=== PATIENT | male | born 1950 | race Caucasian/White ===

== ENCOUNTER 2020-08-11 08:45 | Inpatient (IN) | payer MEDICAID ==
[2020-08-11] VITALS (18 sets, daily range): BP systolic 95–134; BP diastolic 32–89
[~2020-08-11] VITALS: Ht 170.2 cm; Wt 100.7 kg
[2020-08-11] MEDS ORDERED: CEFTRIAXONE 1 G PREMIX 50 ML IV ONE (09:15)
[2020-08-11] MEDS ORDERED: AZITHROMYCIN 500 MG in DEXT 5% WATER 250 ML IV SCH ×2 (09:15→12:30)
[2020-08-11] MEDS ORDERED: METHYLPREDNISOLONE SOD SUCC 125 MG/2 ML VIAL IV ONE (09:15)
[2020-08-11 09:57] LABS: HEMATOCRIT. 46.9 % (42.0-52.0); HEMOGLOBIN. 16.2 g/dL (14.0-18.0); MEAN CORPUSCULAR HEMOGLOBIN 29.9 pg (28.0-32.0); MEAN CORPUSCULAR VOLUME 86.6 fL (80.0-94.0); MEAN PLATELET VOLUME 8.9 fl (7.4-10.4); PLATELET 224 x1000/uL (130-400); RED BLOOD CELL COUNT 5.41 mill/uL (4.7-6.1); RED CELL DISTRIBUTION WIDTH 14.4 % (11.6-14.6)
[2020-08-11 10:10] LABS: CHLORIDE 99 mEq/L (98-107)
[2020-08-11 10:28] LABS: NUCLEATED RED BLOOD CELLS 1 /100 WBC; PLATELET ESTIMATE NORMAL
[2020-08-11] MEDS ORDERED: FUROSEMIDE 40MG/4ML VIAL IVP ONE (10:30)
[2020-08-11] MEDS ORDERED: ASPIRIN 81MG TABLET PO ONE (10:30)
[2020-08-11 11:04] LABS: BG BASE EXCESS -0.5 mmol/L (-2.0-2.0); BG CARBOXYHEMOGLOBIN 0.8 % (0.5-1.5); BG DEOXYHEMOGLOBIN 3.1 % (0.0-5.0); BG FRACTION INSPIRED OXYGEN 100; BG HCO3 ACT 21.7 mmol/L (22.0-26.0); BG METHEMOGLOBIN 0.1 % (0.0-1.5); BG OXYGEN SATURATION 96.9 % (92.0-98.5); BG PCO2 29.9 mmHg (35.0-45.0); BG PH 7.479 (7.350-7.450); BG PO2 91.6 mmHg (75.0-100.0); BG SAMPLE SITE RIGHT RADIAL; BG VENT MODE MASK - BIPAP
[2020-08-11 11:37] LABS: D-DIMER 28.76 mg/L FEU (<0.50); INR 1.1; PROTHROMBIN TIME 11.6 sec (9.6-11.0)
[2020-08-11] MEDS ORDERED: LORAZEPAM 0.5MG TABLET PO PRN (12:30)
[2020-08-11] MEDS ORDERED: CLONIDINE 0.1MG TABLET PO PRN (12:30)
[2020-08-11] MEDS ORDERED: ONDANSETRON HCL 4MG/2ML INJ IV PRN (12:30)
[2020-08-11] MEDS ORDERED: IPRATROPIUM/ALBUTEROL 0.5-3(2.5)MG/3ML NEB HHN PRN (12:30)
[2020-08-11] MEDS ORDERED: DOCUSATE SODIUM 100MG CAPSULE PO PRN (12:30)
[2020-08-11] MEDS ORDERED: DEXTROSE 50% WATER 50ML SYRINGE IV PRN (12:45)
[2020-08-11] MEDS ORDERED: POTASSIUM CHLORIDE 20MEQ TABLET SR PO NR (13:45)
[2020-08-11] MEDS: ENOXAPARIN 100MG/ML SYR SUBCUT SCH (13:52)
[2020-08-11] MEDS: DEXAMETHASONE 2MG TABLET PO SCH (13:53)
[2020-08-11] MEDS ORDERED: CEFTRIAXONE 1 G PREMIX 50 ML IV SCH (14:00)
[2020-08-11] MEDS ORDERED: IOHEXOL-350 100 ML BOTTLE ONE (14:07)
[2020-08-11 14:18] LABS: CLARITY URINE CLEAR (CLEAR); COLOR URINE YELLOW (YELLOW); KETONES URINE NEGATIVE (NEGATIVE); LEUKOCYTE ESTERASE URINE NEGATIVE (NEGATIVE); NITRITE URINE NEGATIVE (NEGATIVE); OCCULT BLOOD URINE TRACE (NEGATIVE); PH URINE 5.5 (4.5-8.0); PROTEIN URINE 1+ (NEGATIVE); SPECIFIC GRAVITY URINE 1.025 (1.005-1.030)
[2020-08-11 14:37] LABS: *AMPHETAMINES SCREEN URINE NEGATIVE (NEGATIVE); *BARBITURATES SCREEN URINE NEGATIVE (NEGATIVE)
[2020-08-11 14:38] LABS: *BENZODIAZEPINES SCREEN URINE NEGATIVE (NEGATIVE); *COCAINE SCREEN URINE NEGATIVE (NEGATIVE); CANNABINOID URINE SCREEN NEGATIVE (NEGATIVE); METHADONE URINE SCREEN NEGATIVE (NEGATIVE); OPIATES URINE SCREEN NEGATIVE (NEGATIVE); PHENCYCLIDINE URINE SCREEN NEGATIVE (NEGATIVE)
[2020-08-11] MEDS: BLOOD SUGAR DIAGNOSTIC STRIP TEST SCH ×2 (16:01→21:27)
[2020-08-11] MEDS: INSULIN LISPRO 100 UNITS/ML SUBCUT SCH ×2 (16:57→21:35)
[2020-08-11 18:26] LABS: CREATINE KINASE MB FRACTION 14.4 ng/mL (0.5-3.6)
[2020-08-12] VITALS (29 sets, daily range): BP systolic 89–125; BP diastolic 50–73
[2020-08-12] MEDS: ENOXAPARIN 100MG/ML SYR SUBCUT SCH ×2 (00:20→12:30)
[2020-08-12 05:03] LABS: HEMATOCRIT. 41.3 % (42.0-52.0); HEMOGLOBIN. 14.1 g/dL (14.0-18.0); MEAN CORPUSCULAR HEMOGLOBIN 29.3 pg (28.0-32.0); MEAN CORPUSCULAR VOLUME 85.8 fL (80.0-94.0); MEAN PLATELET VOLUME 9.3 fl (7.4-10.4); PLATELET 181 x1000/uL (130-400); RED BLOOD CELL COUNT 4.81 mill/uL (4.7-6.1); RED CELL DISTRIBUTION WIDTH 14.6 % (11.6-14.6)
[2020-08-12] MEDS: BLOOD SUGAR DIAGNOSTIC STRIP TEST SCH ×4 (06:18→20:46)
[2020-08-12] MEDS: INSULIN LISPRO 100 UNITS/ML SUBCUT SCH ×4 (06:21→20:50)
[2020-08-12] MEDS ORDERED: DEXTROSE 50% WATER 50ML SYRINGE IV PRN (07:15)
[2020-08-12 08:19] LABS: PLATELET ESTIMATE NORMAL
[2020-08-12] MEDS: CEFTRIAXONE 1,000 MG in DEXTROSE 5% WATER 50 ML IV SCH (08:47)
[2020-08-12] MEDS: DEXAMETHASONE 2MG TABLET PO SCH (08:47)
[2020-08-12 09:04] LABS: BG BASE EXCESS 0.3 mmol/L (-2.0-2.0); BG CARBOXYHEMOGLOBIN 0.1 % (0.5-1.5); BG DEOXYHEMOGLOBIN 1.3 % (0.0-5.0); BG FRACTION INSPIRED OXYGEN 100; BG HCO3 ACT 23.3 mmol/L (22.0-26.0); BG METHEMOGLOBIN 0.3 % (0.0-1.5); BG OXYGEN SATURATION 98.7 % (92.0-98.5); BG OXYHEMOGLOBIN 98.3 % (94.0-97.0); BG PH 7.466 (7.350-7.450); BG SAMPLE SITE RIGHT RADIAL; BG TOTAL HEMOGLOBIN 15.3 g/dL (12.0-18.0); BG TOTAL RESPIRATORY RATE 35 b/min; BG VENT MODE MASK - BIPAP
[2020-08-12] MEDS: SODIUM CHLORIDE 0.9% 1,000 ML IV SCH (09:40)
[2020-08-12] MEDS ORDERED: KCL 20MEQ/100ML PREMIX 100 ML IV NR (11:00)
[2020-08-12] MEDS ORDERED: POTASSIUM CHLORIDE 20MEQ/PACKET PO SCH (14:00)
[2020-08-12] MEDS ORDERED: REMDESIVIR 200 MG in SODIUM CHLORIDE 0.9% 250 ML IV NR (14:00)
[2020-08-12] MEDS: ALBUTEROL 6.7GM HFA INHALER ORI SCH (20:37)
[2020-08-13] VITALS (52 sets, daily range): BP systolic 104–169; BP diastolic 58–138
[2020-08-13] MEDS: ALBUTEROL 6.7GM HFA INHALER ORI SCH ×2 (00:36→20:32)
[2020-08-13] MEDS: ENOXAPARIN 100MG/ML SYR SUBCUT SCH ×2 (00:50→15:11)
[2020-08-13] MEDS: HYDROCODONE/ACETAMINOPHEN 5/325MG TABLET PO PRN (00:51)
[2020-08-13] MEDS ORDERED: VANCOMYCIN 1500MG in DEXTROSE 5% WATER 250ML IV SCH (01:00)
[2020-08-13 05:38] LABS: HEMATOCRIT. 42.1 % (42.0-52.0); MEAN CORPUSCULAR HEMOGLOBIN 29.3 pg (28.0-32.0); MEAN CORPUSCULAR VOLUME 87.8 fL (80.0-94.0); MEAN PLATELET VOLUME 9.7 fl (7.4-10.4); PLATELET 187 x1000/uL (130-400); RED BLOOD CELL COUNT 4.79 mill/uL (4.7-6.1); RED CELL DISTRIBUTION WIDTH 14.5 % (11.6-14.6)
[2020-08-13 05:50] LABS: CHLORIDE 107 mEq/L (98-107)
[2020-08-13] MEDS: INSULIN LISPRO 100 UNITS/ML SUBCUT SCH ×4 (06:35→20:58)
[2020-08-13] MEDS: BLOOD SUGAR DIAGNOSTIC STRIP TEST SCH ×4 (06:35→20:15)
[2020-08-13 07:58] LABS: BG BASE EXCESS -0.8 mmol/L (-2.0-2.0); BG CARBOXYHEMOGLOBIN 0.6 % (0.5-1.5); BG HCO3 ACT 23.5 mmol/L (22.0-26.0); BG METHEMOGLOBIN 0.1 % (0.0-1.5); BG OXYHEMOGLOBIN 94.3 % (94.0-97.0); BG PCO2 37.7 mmHg (35.0-45.0); BG PH 7.412 (7.350-7.450); BG PO2 80.5 mmHg (75.0-100.0); BG SAMPLE SITE RIGHT RADIAL; BG TOTAL HEMOGLOBIN 15.7 g/dL (12.0-18.0); BG VENT MODE MASK - BIPAP
[2020-08-13 08:43] LABS: PLATELET ESTIMATE NORMAL
[2020-08-13] MEDS: CEFTRIAXONE 1,000 MG in DEXTROSE 5% WATER 50 ML IV SCH (09:19)
[2020-08-13] MEDS: DEXAMETHASONE 2MG TABLET PO SCH (09:19)
[2020-08-13] MEDS: AZITHROMYCIN 500 MG in DEXT 5% WATER 250 ML IV SCH (11:38)
[2020-08-13] MEDS: VANCOMYCIN 750 MG PREMIX 150 ML IV SCH (12:11)
[2020-08-13] MEDS: SODIUM CHLORIDE 0.9% 1,000 ML IV SCH ×2 (13:10→13:51)
[2020-08-13] MEDS: REMDESIVIR 100 MG in SODIUM CHLORIDE 0.9% 250 ML IV SCH (15:10)
[2020-08-13] MEDS: ASPIRIN 81MG EC TABLET PO SCH (15:12)
[2020-08-14] VITALS (22 sets, daily range): BP systolic 116–154; BP diastolic 59–89
[2020-08-14] MEDS: VANCOMYCIN 750 MG PREMIX 150 ML IV SCH (00:01)
[2020-08-14] MEDS: ENOXAPARIN 100MG/ML SYR SUBCUT SCH ×2 (00:02→12:31)
[2020-08-14] MEDS: HYDROCODONE/ACETAMINOPHEN 5/325MG TABLET PO PRN (00:04)
[2020-08-14] MEDS: ALBUTEROL 6.7GM HFA INHALER ORI SCH ×3 (01:30→21:15)
[2020-08-14] MEDS: SODIUM CHLORIDE 0.9% 1,000 ML IV SCH ×2 (04:48→18:01)
[2020-08-14 05:41] LABS: HEMATOCRIT. 44.1 % (42.0-52.0); HEMOGLOBIN. 14.8 g/dL (14.0-18.0); MEAN CORPUSCULAR HEMOGLOBIN 29.3 pg (28.0-32.0); MEAN CORPUSCULAR VOLUME 87.3 fL (80.0-94.0); MEAN PLATELET VOLUME 9.8 fl (7.4-10.4); PLATELET 146 x1000/uL (130-400); RED BLOOD CELL COUNT 5.05 mill/uL (4.7-6.1); RED CELL DISTRIBUTION WIDTH 14.3 % (11.6-14.6)
[2020-08-14 05:42] LABS: CHLORIDE 105 mEq/L (98-107)
[2020-08-14] MEDS: INSULIN LISPRO 100 UNITS/ML SUBCUT SCH ×4 (07:00→21:30)
[2020-08-14] MEDS: BLOOD SUGAR DIAGNOSTIC STRIP TEST SCH ×4 (07:11→21:26)
[2020-08-14] MEDS: DEXAMETHASONE 2MG TABLET PO SCH (09:18)
[2020-08-14] MEDS: CEFTRIAXONE 1,000 MG in DEXTROSE 5% WATER 50 ML IV SCH (09:18)
[2020-08-14] MEDS: ASPIRIN 81MG EC TABLET PO SCH (09:19)
[2020-08-14 10:01] LABS: PLATELET ESTIMATE NORMAL
[2020-08-14 10:28] LABS: BG BASE EXCESS -0.2 mmol/L (-2.0-2.0); BG CARBOXYHEMOGLOBIN 0.9 % (0.5-1.5); BG DEOXYHEMOGLOBIN 8.1 % (0.0-5.0); BG FRACTION INSPIRED OXYGEN 100; BG HCO3 ACT 22.5 mmol/L (22.0-26.0); BG METHEMOGLOBIN 0.3 % (0.0-1.5); BG OXYGEN SATURATION 91.8 % (92.0-98.5); BG OXYHEMOGLOBIN 90.7 % (94.0-97.0); BG PCO2 31.6 mmHg (35.0-45.0); BG PO2 58.2 mmHg (75.0-100.0); BG TOTAL HEMOGLOBIN 15.6 g/dL (12.0-18.0); BG VENT MODE MASK - BIPAP
[2020-08-14] MEDS: AZITHROMYCIN 500 MG in DEXT 5% WATER 250 ML IV SCH (11:42)
[2020-08-14] MEDS: REMDESIVIR 100 MG in SODIUM CHLORIDE 0.9% 250 ML IV SCH (15:06)
[2020-08-14] MEDS: PANTOPRAZOLE SODIUM 40 MG/VIAL IV SCH (15:06)
[2020-08-14] MEDS: AMLODIPINE 2.5MG TABLET PO SCH (21:29)
[2020-08-15] VITALS (24 sets, daily range): BP systolic 120–144; BP diastolic 71–87
[2020-08-15] MEDS: ENOXAPARIN 100MG/ML SYR SUBCUT SCH ×2 (01:33→12:26)
[2020-08-15 05:14] LABS: HEMATOCRIT. 43.2 % (42.0-52.0); HEMOGLOBIN. 14.4 g/dL (14.0-18.0); MEAN CORPUSCULAR HEMOGLOBIN 29.1 pg (28.0-32.0); MEAN CORPUSCULAR VOLUME 87.5 fL (80.0-94.0); MEAN PLATELET VOLUME 9.4 fl (7.4-10.4); PLATELET 161 x1000/uL (130-400); RED BLOOD CELL COUNT 4.94 mill/uL (4.7-6.1); RED CELL DISTRIBUTION WIDTH 14.7 % (11.6-14.6)
[2020-08-15 05:22] LABS: CHLORIDE 105 mEq/L (98-107)
[2020-08-15] MEDS: BLOOD SUGAR DIAGNOSTIC STRIP TEST SCH ×4 (05:30→20:25)
[2020-08-15] MEDS: INSULIN LISPRO 100 UNITS/ML SUBCUT SCH ×4 (06:13→20:35)
[2020-08-15] MEDS: SODIUM CHLORIDE 0.9% 1,000 ML IV SCH ×2 (06:19→23:44)
[2020-08-15] MEDS: ASPIRIN 81MG EC TABLET PO SCH (08:20)
[2020-08-15] MEDS: CEFTRIAXONE 1,000 MG in DEXTROSE 5% WATER 50 ML IV SCH (08:20)
[2020-08-15] MEDS: PANTOPRAZOLE SODIUM 40 MG/VIAL IV SCH (08:20)
[2020-08-15] MEDS: AMLODIPINE 2.5MG TABLET PO SCH ×2 (08:21→20:29)
[2020-08-15] MEDS: DEXAMETHASONE 4MG TABLET PO SCH (08:21)
[2020-08-15] MEDS: ALBUTEROL 6.7GM HFA INHALER ORI SCH ×4 (09:30→20:25)
[2020-08-15] MEDS: AZITHROMYCIN 500 MG in DEXT 5% WATER 250 ML IV SCH (09:39)
[2020-08-15] MEDS ORDERED: POTASSIUM CHLORIDE 20MEQ/PACKET PO NR (10:00)
[2020-08-15] MEDS: REMDESIVIR 100 MG in SODIUM CHLORIDE 0.9% 250 ML IV SCH (13:15)
[2020-08-15 17:19] LABS: PLATELET ESTIMATE NORMAL
[2020-08-16] VITALS (24 sets, daily range): BP systolic 129–159; BP diastolic 72–94
[2020-08-16] MEDS: ENOXAPARIN 100MG/ML SYR SUBCUT SCH ×2 (00:57→13:02)
[2020-08-16] MEDS: ALBUTEROL 6.7GM HFA INHALER ORI SCH ×3 (02:25→15:30)
[2020-08-16 04:30] LABS: HEMATOCRIT. 44.7 % (42.0-52.0); HEMOGLOBIN. 15.1 g/dL (14.0-18.0); MEAN CORPUSCULAR HEMOGLOBIN 29.4 pg (28.0-32.0); MEAN CORPUSCULAR VOLUME 87.1 fL (80.0-94.0); MEAN PLATELET VOLUME 9.3 fl (7.4-10.4); PLATELET 181 x1000/uL (130-400); RED BLOOD CELL COUNT 5.13 mill/uL (4.7-6.1); RED CELL DISTRIBUTION WIDTH 14.6 % (11.6-14.6)
[2020-08-16 04:40] LABS: CHLORIDE 105 mEq/L (98-107)
[2020-08-16] MEDS: BLOOD SUGAR DIAGNOSTIC STRIP TEST SCH ×4 (05:42→20:13)
[2020-08-16] MEDS: INSULIN LISPRO 100 UNITS/ML SUBCUT SCH ×4 (06:15→20:22)
[2020-08-16] MEDS: AMLODIPINE 2.5MG TABLET PO SCH (08:28)
[2020-08-16] MEDS: CEFTRIAXONE 1,000 MG in DEXTROSE 5% WATER 50 ML IV SCH (08:28)
[2020-08-16] MEDS: ASPIRIN 81MG EC TABLET PO SCH (08:28)
[2020-08-16] MEDS: DEXAMETHASONE 4MG TABLET PO SCH (08:28)
[2020-08-16] MEDS: PANTOPRAZOLE SODIUM 40 MG/VIAL IV SCH (08:28)
[2020-08-16] MEDS: AZITHROMYCIN 500 MG in DEXT 5% WATER 250 ML IV SCH (09:54)
[2020-08-16] MEDS: SODIUM CHLORIDE 0.9% 1,000 ML IV SCH (13:02)
[2020-08-16] MEDS: REMDESIVIR 100 MG in SODIUM CHLORIDE 0.9% 250 ML IV SCH (13:24)
[2020-08-16 13:43] LABS: PLATELET ESTIMATE NORMAL
[2020-08-16] MEDS ORDERED: DEXTROSE 50% WATER 50ML SYRINGE IV ONE ×2 (18:27→18:29)
[2020-08-16] MEDS: AMLODIPINE 5MG TABLET PO SCH (20:21)
[2020-08-17] VITALS (24 sets, daily range): BP systolic 124–153; BP diastolic 48–87
[2020-08-17] MEDS: ENOXAPARIN 100MG/ML SYR SUBCUT SCH ×2 (00:52→12:34)
[2020-08-17] MEDS: ALBUTEROL 6.7GM HFA INHALER ORI SCH ×5 (02:45→22:11)
[2020-08-17] MEDS: SODIUM CHLORIDE 0.9% 1,000 ML IV SCH ×2 (04:21→17:59)
[2020-08-17 05:30] LABS: HEMATOCRIT. 44.9 % (42.0-52.0); MEAN CORPUSCULAR VOLUME 86.9 fL (80.0-94.0); MEAN PLATELET VOLUME 9.4 fl (7.4-10.4); PLATELET 201 x1000/uL (130-400); RED BLOOD CELL COUNT 5.16 mill/uL (4.7-6.1); RED CELL DISTRIBUTION WIDTH 14.3 % (11.6-14.6)
[2020-08-17 05:42] LABS: CHLORIDE 105 mEq/L (98-107)
[2020-08-17] MEDS: BLOOD SUGAR DIAGNOSTIC STRIP TEST SCH ×4 (05:45→20:01)
[2020-08-17] MEDS: INSULIN LISPRO 100 UNITS/ML SUBCUT SCH ×4 (06:54→20:37)
[2020-08-17 07:45] LABS: BG DEOXYHEMOGLOBIN 2.8 % (0.0-5.0); BG HCO3 ACT 26.2 mmol/L (22.0-26.0); BG METHEMOGLOBIN 0.1 % (0.0-1.5); BG OXYGEN SATURATION 97.2 % (92.0-98.5); BG OXYHEMOGLOBIN 97.1 % (94.0-97.0); BG PCO2 39.8 mmHg (35.0-45.0); BG PH 7.437 (7.350-7.450); BG PO2 95.5 mmHg (75.0-100.0); BG SAMPLE SITE RIGHT RADIAL; BG TOTAL HEMOGLOBIN 15.6 g/dL (12.0-18.0); BG VENT MODE MASK - BIPAP
[2020-08-17] MEDS: AZITHROMYCIN 500 MG in DEXT 5% WATER 250 ML IV SCH (09:07)
[2020-08-17] MEDS: AMLODIPINE 5MG TABLET PO SCH ×2 (09:08→20:01)
[2020-08-17] MEDS: ASPIRIN 81MG EC TABLET PO SCH (09:08)
[2020-08-17] MEDS: PANTOPRAZOLE SODIUM 40 MG/VIAL IV SCH (09:08)
[2020-08-17 12:35] LABS: PLATELET ESTIMATE NORMAL
[2020-08-17] MEDS: ACETAMINOPHEN 325MG TABLET PO PRN (17:49)
[2020-08-18] VITALS (23 sets, daily range): BP systolic 114–146; BP diastolic 66–94
[2020-08-18] MEDS: ENOXAPARIN 100MG/ML SYR SUBCUT SCH ×2 (00:01→12:15)
[2020-08-18] MEDS: ALBUTEROL 6.7GM HFA INHALER ORI SCH ×5 (05:19→20:52)
[2020-08-18 05:24] LABS: HEMATOCRIT. 46.6 % (42.0-52.0); HEMOGLOBIN. 15.5 g/dL (14.0-18.0); MEAN CORPUSCULAR HEMOGLOBIN 29.2 pg (28.0-32.0); MEAN CORPUSCULAR VOLUME 87.8 fL (80.0-94.0); MEAN PLATELET VOLUME 9.2 fl (7.4-10.4); PLATELET 213 x1000/uL (130-400); RED BLOOD CELL COUNT 5.31 mill/uL (4.7-6.1); RED CELL DISTRIBUTION WIDTH 14.3 % (11.6-14.6)
[2020-08-18 05:25] LABS: CHLORIDE 102 mEq/L (98-107)
[2020-08-18] MEDS: BLOOD SUGAR DIAGNOSTIC STRIP TEST SCH ×4 (06:12→20:14)
[2020-08-18] MEDS: INSULIN LISPRO 100 UNITS/ML SUBCUT SCH ×4 (06:12→20:25)
[2020-08-18 07:08] LABS: PLATELET ESTIMATE NORMAL
[2020-08-18] MEDS: PANTOPRAZOLE SODIUM 40 MG/VIAL IV SCH (09:04)
[2020-08-18] MEDS: ASPIRIN 81MG EC TABLET PO SCH (09:05)
[2020-08-18] MEDS: AMLODIPINE 5MG TABLET PO SCH ×2 (09:05→20:14)
[2020-08-18] MEDS: SODIUM CHLORIDE 0.9% 1,000 ML IV SCH ×2 (09:09→21:28)
[2020-08-18 09:50] LABS: BG BASE EXCESS 1.5 mmol/L (-2.0-2.0); BG CARBOXYHEMOGLOBIN 1.8 % (0.5-1.5); BG DEOXYHEMOGLOBIN 3.6 % (0.0-5.0); BG FRACTION INSPIRED OXYGEN 100; BG HCO3 ACT 25.4 mmol/L (22.0-26.0); BG METHEMOGLOBIN 0.2 % (0.0-1.5); BG OXYGEN SATURATION 96.3 % (92.0-98.5); BG OXYHEMOGLOBIN 94.4 % (94.0-97.0); BG PCO2 37.7 mmHg (35.0-45.0); BG PH 7.446 (7.350-7.450); BG PO2 78.4 mmHg (75.0-100.0); BG SAMPLE SITE RIGHT RADIAL; BG TOTAL HEMOGLOBIN 15.1 g/dL (12.0-18.0); BG TOTAL RESPIRATORY RATE 34 b/min; BG VENT MODE MASK - BIPAP
[2020-08-18] MEDS ORDERED: LIDOCAINE HCL 1% 20ML VIAL (Pyxis) INJ ONE (10:19)
[2020-08-18] MEDS: MORPHINE SULFATE 2 MG/ML CPJ (NOT FOR IM USE) IV PRN (18:32)
[2020-08-18] MEDS: ACETAMINOPHEN 325MG TABLET PO PRN (23:59)
[2020-08-19] VITALS (23 sets, daily range): BP systolic 104–156; BP diastolic 34–85
[2020-08-19] MEDS: ENOXAPARIN 100MG/ML SYR SUBCUT SCH ×2 (00:04→13:11)
[2020-08-19] MEDS: MORPHINE SULFATE 2 MG/ML CPJ (NOT FOR IM USE) IV PRN ×2 (01:03→09:18)
[2020-08-19] MEDS: ALBUTEROL 6.7GM HFA INHALER ORI SCH ×4 (02:49→20:20)
[2020-08-19 05:31] LABS: CHLORIDE 104 mEq/L (98-107)
[2020-08-19 05:40] LABS: HEMATOCRIT. 43.3 % (42.0-52.0); HEMOGLOBIN. 14.6 g/dL (14.0-18.0); MEAN CORPUSCULAR HEMOGLOBIN 29.3 pg (28.0-32.0); MEAN CORPUSCULAR VOLUME 87.1 fL (80.0-94.0); MEAN PLATELET VOLUME 9.2 fl (7.4-10.4); PLATELET 215 x1000/uL (130-400); RED BLOOD CELL COUNT 4.98 mill/uL (4.7-6.1); RED CELL DISTRIBUTION WIDTH 14.4 % (11.6-14.6)
[2020-08-19] MEDS: BLOOD SUGAR DIAGNOSTIC STRIP TEST SCH ×4 (05:54→21:00)
[2020-08-19] MEDS: INSULIN LISPRO 100 UNITS/ML SUBCUT SCH ×4 (07:00→21:00)
[2020-08-19 07:31] LABS: PLATELET ESTIMATE NORMAL
[2020-08-19 08:46] LABS: BG BASE EXCESS -1.9 mmol/L (-2.0-2.0); BG CARBOXYHEMOGLOBIN 1.1 % (0.5-1.5); BG DEOXYHEMOGLOBIN 7.6 % (0.0-5.0); BG FRACTION INSPIRED OXYGEN 100; BG HCO3 ACT 22.3 mmol/L (22.0-26.0); BG METHEMOGLOBIN 0.1 % (0.0-1.5); BG OXYGEN SATURATION 92.3 % (92.0-98.5); BG OXYHEMOGLOBIN 91.2 % (94.0-97.0); BG PCO2 36.6 mmHg (35.0-45.0); BG PH 7.403 (7.350-7.450); BG PO2 62.7 mmHg (75.0-100.0); BG SAMPLE SITE RIGHT BRACHIAL; BG TOTAL HEMOGLOBIN 15.7 g/dL (12.0-18.0); BG VENT MODE MASK - BIPAP
[2020-08-19] MEDS: ASPIRIN 81MG EC TABLET PO SCH (09:17)
[2020-08-19] MEDS: PANTOPRAZOLE SODIUM 40 MG/VIAL IV SCH (09:17)
[2020-08-19] MEDS: AMLODIPINE 5MG TABLET PO SCH ×2 (09:18→21:24)
[2020-08-19] MEDS: SODIUM CHLORIDE 0.9% 1,000 ML IV SCH (13:07)
[2020-08-19] MEDS: CEFEPIME 1,000 MG in DEXTROSE 5% WATER 50 ML IV SCH (20:27)
[2020-08-19] MEDS: ACETAMINOPHEN 325MG TABLET PO PRN (21:25)
[2020-08-20] VITALS (27 sets, daily range): BP systolic 114–167; BP diastolic 55–100
[2020-08-20] MEDS: ENOXAPARIN 100MG/ML SYR SUBCUT SCH ×2 (00:14→13:25)
[2020-08-20] MEDS: ALBUTEROL 6.7GM HFA INHALER ORI SCH ×5 (01:31→20:35)
[2020-08-20] MEDS: SODIUM CHLORIDE 0.9% 1,000 ML IV SCH ×2 (03:11→17:48)
[2020-08-20] MEDS: CEFEPIME 1,000 MG in DEXTROSE 5% WATER 50 ML IV SCH ×2 (06:13→19:08)
[2020-08-20] MEDS: BLOOD SUGAR DIAGNOSTIC STRIP TEST SCH ×4 (06:23→21:00)
[2020-08-20] MEDS: INSULIN LISPRO 100 UNITS/ML SUBCUT SCH ×4 (06:23→21:00)
[2020-08-20] MEDS: ASPIRIN 81MG EC TABLET PO SCH (10:20)
[2020-08-20] MEDS: DILTIAZEM HCL 60MG TABLET PO SCH ×3 (10:20→21:22)
[2020-08-20] MEDS: ACETAMINOPHEN 325MG TABLET PO PRN (10:20)
[2020-08-20] MEDS: PANTOPRAZOLE SODIUM 40 MG/VIAL IV SCH (10:20)
[2020-08-20 10:47] LABS: HEMATOCRIT. 48.1 % (42.0-52.0); HEMOGLOBIN. 15.8 g/dL (14.0-18.0); MEAN CORPUSCULAR VOLUME 88.1 fL (80.0-94.0); MEAN PLATELET VOLUME 8.5 fl (7.4-10.4); PLATELET 296 x1000/uL (130-400); RED BLOOD CELL COUNT 5.46 mill/uL (4.7-6.1); RED CELL DISTRIBUTION WIDTH 14.6 % (11.6-14.6)
[2020-08-20 11:03] LABS: CHLORIDE 106 mEq/L (98-107)
[2020-08-20 12:02] LABS: PLATELET ESTIMATE NORMAL
[2020-08-21] VITALS (34 sets, daily range): BP systolic 75–153; BP diastolic 48–111
[2020-08-21] MEDS: ALBUTEROL 6.7GM HFA INHALER ORI SCH (00:15)
[2020-08-21] MEDS: ENOXAPARIN 100MG/ML SYR SUBCUT SCH ×2 (00:22→14:04)
[2020-08-21 05:02] LABS: HEMATOCRIT. 42.5 % (42.0-52.0); HEMOGLOBIN. 14.1 g/dL (14.0-18.0); MEAN CORPUSCULAR VOLUME 87.1 fL (80.0-94.0); MEAN PLATELET VOLUME 8.8 fl (7.4-10.4); PLATELET 309 x1000/uL (130-400); RED BLOOD CELL COUNT 4.88 mill/uL (4.7-6.1); RED CELL DISTRIBUTION WIDTH 14.6 % (11.6-14.6)
[2020-08-21 05:09] LABS: CHLORIDE 108 mEq/L (98-107)
[2020-08-21] MEDS: DILTIAZEM HCL 60MG TABLET PO SCH ×4 (05:20→17:08)
[2020-08-21] MEDS: BLOOD SUGAR DIAGNOSTIC STRIP TEST SCH ×4 (05:35→21:00)
[2020-08-21] MEDS: CEFEPIME 1,000 MG in DEXTROSE 5% WATER 50 ML IV SCH ×2 (06:08→19:33)
[2020-08-21] MEDS: INSULIN LISPRO 100 UNITS/ML SUBCUT SCH ×4 (06:56→21:00)
[2020-08-21 07:06] LABS: PLATELET ESTIMATE NORMAL
[2020-08-21] MEDS: ASPIRIN 81MG EC TABLET PO SCH (09:09)
[2020-08-21] MEDS: PANTOPRAZOLE SODIUM 40 MG/VIAL IV SCH (09:09)
[2020-08-21] MEDS: SODIUM CHLORIDE 0.9% 1,000 ML IV SCH ×2 (09:13→23:57)
[2020-08-21] MEDS ORDERED: PROPOFOL 10MG/ML 100ML 100 ML IV PRN (10:15)
[2020-08-21] MEDS: FENTANYL CITRATE/PF 1,000 MCG in SODIUM CHLORIDE 0.9% 80 ML IV PRN ×3 (11:19→17:11)
[2020-08-21] MEDS: MIDAZOLAM HCL 100 MG in DEXT 5% WATER 80 ML IV PRN ×3 (11:22→22:24)
[2020-08-21 11:43] LABS: BG BASE EXCESS -7.8 mmol/L (-2.0-2.0); BG CARBOXYHEMOGLOBIN 1.3 % (0.5-1.5); BG DEOXYHEMOGLOBIN 16.6 % (0.0-5.0); BG FRACTION INSPIRED OXYGEN 100; BG HCO3 ACT 21.8 mmol/L (22.0-26.0); BG METHEMOGLOBIN 0.3 % (0.0-1.5); BG OXYGEN SATURATION 83.1 % (92.0-98.5); BG OXYHEMOGLOBIN 81.8 % (94.0-97.0); BG PCO2 61.1 mmHg (35.0-45.0); BG PO2 59.2 mmHg (75.0-100.0); BG SAMPLE SITE LEFT RADIAL; BG TOTAL HEMOGLOBIN 15.6 g/dL (12.0-18.0); BG VENT MODE VENT - AC
[2020-08-21] MEDS: PHENYLEPHRINE 100 MG in DEXT 5% WATER 240 ML IV PRN (13:04)
[2020-08-21] MEDS ORDERED: IPRATROPIUM BROMIDE (0.02%) 0.5MG/2.5ML NEB HHN PRN (13:45)
[2020-08-21] MEDS ORDERED: DIGOXIN 500MCG/2ML AMP IV NR (14:15)
[2020-08-21 14:38] LABS: BG CARBOXYHEMOGLOBIN 0.6 % (0.5-1.5); BG FRACTION INSPIRED OXYGEN 100; BG HCO3 ACT 23.5 mmol/L (22.0-26.0); BG METHEMOGLOBIN 0.1 % (0.0-1.5); BG OXYHEMOGLOBIN 97.3 % (94.0-97.0); BG PCO2 70.4 mmHg (35.0-45.0); BG PH 7.142 (7.350-7.450); BG PO2 140.8 mmHg (75.0-100.0); BG SAMPLE SITE LEFT RADIAL; BG TOTAL HEMOGLOBIN 15.5 g/dL (12.0-18.0); BG TOTAL RESPIRATORY RATE 27 b/min; BG VENT MODE VENT - AC
[2020-08-21] MEDS: NOREPINEPHRINE 32 MG in DEXT 5% WATER 218 ML IV PRN ×2 (17:13→23:57)
[2020-08-21] MEDS: IPRATROPIUM BROMIDE (0.02%) 0.5MG/2.5ML NEB HHN SCH ×2 (17:58→21:22)
[2020-08-22] VITALS (60 sets, daily range): BP systolic 72–167; BP diastolic 41–86
[2020-08-22] MEDS: FENTANYL CITRATE/PF 2,500 MCG in SODIUM CHLORIDE 0.9% 200 ML IV PRN ×3 (00:26→20:57)
[2020-08-22] MEDS: DILTIAZEM HCL 60MG TABLET PO SCH ×5 (00:36→18:00)
[2020-08-22] MEDS: ENOXAPARIN 100MG/ML SYR SUBCUT SCH ×2 (00:36→12:46)
[2020-08-22] MEDS: IPRATROPIUM BROMIDE (0.02%) 0.5MG/2.5ML NEB HHN SCH ×6 (00:37→21:00)
[2020-08-22 05:39] LABS: HEMATOCRIT. 39.2 % (42.0-52.0); HEMOGLOBIN. 12.6 g/dL (14.0-18.0); MEAN CORPUSCULAR HEMOGLOBIN 29.2 pg (28.0-32.0); MEAN CORPUSCULAR VOLUME 90.4 fL (80.0-94.0); MEAN PLATELET VOLUME 9.2 fl (7.4-10.4); PLATELET 376 x1000/uL (130-400); RED BLOOD CELL COUNT 4.33 mill/uL (4.7-6.1); RED CELL DISTRIBUTION WIDTH 15.4 % (11.6-14.6)
[2020-08-22] MEDS: ACETAMINOPHEN 325MG TABLET PO PRN ×2 (05:48→11:03)
[2020-08-22] MEDS: MIDAZOLAM HCL 100 MG in DEXT 5% WATER 80 ML IV PRN ×3 (05:51→22:49)
[2020-08-22 05:56] LABS: CHLORIDE 100 mEq/L (98-107)
[2020-08-22] MEDS: CEFEPIME 1,000 MG in DEXTROSE 5% WATER 50 ML IV SCH ×2 (06:03→18:19)
[2020-08-22] MEDS: NOREPINEPHRINE 32 MG in DEXT 5% WATER 218 ML IV PRN ×2 (06:03→12:45)
[2020-08-22] MEDS: BLOOD SUGAR DIAGNOSTIC STRIP TEST SCH ×4 (06:40→21:00)
[2020-08-22] MEDS: INSULIN LISPRO 100 UNITS/ML SUBCUT SCH ×3 (06:45→21:00)
[2020-08-22] MEDS: ALBUMIN HUMAN 25GM/100ML (25%) IV SCH (08:18)
[2020-08-22 08:51] LABS: PLATELET ESTIMATE NORMAL
[2020-08-22 10:07] LABS: BG BASE EXCESS -8.3 mmol/L (-2.0-2.0); BG CARBOXYHEMOGLOBIN 0.3 % (0.5-1.5); BG DEOXYHEMOGLOBIN 0.9 % (0.0-5.0); BG FRACTION INSPIRED OXYGEN 100; BG HCO3 ACT 22.4 mmol/L (22.0-26.0); BG OXYGEN SATURATION 99.1 % (92.0-98.5); BG OXYHEMOGLOBIN 98.8 % (94.0-97.0); BG PCO2 71.6 mmHg (35.0-45.0); BG PH 7.113 (7.350-7.450); BG PO2 221.2 mmHg (75.0-100.0); BG SAMPLE SITE LEFT RADIAL; BG VENT MODE VENT - AC
[2020-08-22] MEDS: PANTOPRAZOLE SODIUM 40 MG/VIAL IV SCH (10:58)
[2020-08-22] MEDS: PHENYLEPHRINE 100 MG in DEXT 5% WATER 240 ML IV PRN (10:59)
[2020-08-22] MEDS: ASPIRIN 81MG EC TABLET PO SCH (10:59)
[2020-08-22] MEDS: SODIUM CHLORIDE 0.9% 1,000 ML IV SCH (12:46)
[2020-08-22 16:58] LABS: CHLORIDE 109 mEq/L (98-107)
[2020-08-22 17:06] LABS: CREATINE KINASE 94 IU/L (39-308)
[2020-08-22] MEDS ORDERED: SODIUM POLYSTYRENE SULFONATE 15 G/60 ML BOT PO NR ×2 (18:00→22:00)
[2020-08-22] MEDS ORDERED: SODIUM BICARBONATE 8.4% 1 MEQ/ML 50ML SYR IV NR (18:00)
[2020-08-22] MEDS: PHENYLEPHRINE 100 MG in SODIUM CHLORIDE 0.9% 240 ML IV PRN (19:01)
[2020-08-22] MEDS: NOREPINEPHRINE 32 MG in SODIUM CHLORIDE 0.9% 218 ML IV PRN (19:02)
[2020-08-22] MEDS ORDERED: DILTIAZEM HCL 5MG/ML 5ML VIAL IV SCH ×2 (19:45→22:15)
[2020-08-22] MEDS ORDERED: INSULIN REGULAR (HUMULIN R) 300UNITS/3ML VIAL IV NR (20:15)
[2020-08-22] MEDS ORDERED: DEXTROSE 50% WATER 50ML SYRINGE IV NR (20:15)
[2020-08-22] MEDS ORDERED: DIGOXIN 500MCG/2ML AMP IV SCH (20:30)
[2020-08-22] MEDS ORDERED: CALCIUM CHLORIDE 1,000 MG in DEXT 5% WATER 90 ML IV SCH (21:00)
[2020-08-22 22:23] LABS: BG BASE EXCESS -9.1 mmol/L (-2.0-2.0); BG CARBOXYHEMOGLOBIN 0.8 % (0.5-1.5); BG DEOXYHEMOGLOBIN 25.6 % (0.0-5.0); BG METHEMOGLOBIN 0.1 % (0.0-1.5); BG OXYGEN SATURATION 74.2 % (92.0-98.5); BG OXYHEMOGLOBIN 73.5 % (94.0-97.0); BG PCO2 65.7 mmHg (35.0-45.0); BG PH 7.123 (7.350-7.450); BG PO2 42.3 mmHg (75.0-100.0); BG TOTAL HEMOGLOBIN 13.5 g/dL (12.0-18.0)
[2020-08-23] VITALS (84 sets, daily range): BP systolic 70–149; BP diastolic 48–96
[2020-08-23] MEDS: IPRATROPIUM BROMIDE (0.02%) 0.5MG/2.5ML NEB HHN SCH ×4 (00:15→21:04)
[2020-08-23] MEDS: ENOXAPARIN 100MG/ML SYR SUBCUT SCH ×2 (01:47→20:53)
[2020-08-23] MEDS: DILTIAZEM HCL 60MG TABLET PO SCH ×4 (02:06→18:00)
[2020-08-23 05:30] LABS: HEMATOCRIT. 39.2 % (42.0-52.0); HEMOGLOBIN. 12.8 g/dL (14.0-18.0); MEAN CORPUSCULAR HEMOGLOBIN 29.4 pg (28.0-32.0); MEAN CORPUSCULAR VOLUME 90.1 fL (80.0-94.0); MEAN PLATELET VOLUME 8.5 fl (7.4-10.4); PLATELET 333 x1000/uL (130-400); RED BLOOD CELL COUNT 4.35 mill/uL (4.7-6.1); RED CELL DISTRIBUTION WIDTH 15.4 % (11.6-14.6)
[2020-08-23 05:39] LABS: CHLORIDE 106 mEq/L (98-107)
[2020-08-23] MEDS: FENTANYL CITRATE/PF 2,500 MCG in SODIUM CHLORIDE 0.9% 200 ML IV PRN ×2 (05:39→11:49)
[2020-08-23 05:43] LABS: PHOSPHORUS 6.4 mg/dL (2.5-4.9)
[2020-08-23] MEDS: MIDAZOLAM HCL 100 MG in DEXT 5% WATER 80 ML IV PRN ×3 (05:56→18:58)
[2020-08-23] MEDS ORDERED: DILTIAZEM HCL 5MG/ML 5ML VIAL IV SCH (06:00)
[2020-08-23] MEDS: INSULIN LISPRO 100 UNITS/ML SUBCUT SCH ×4 (07:00→21:00)
[2020-08-23] MEDS: BLOOD SUGAR DIAGNOSTIC STRIP TEST SCH ×4 (07:15→21:58)
[2020-08-23 07:43] LABS: PLATELET ESTIMATE NORMAL
[2020-08-23] MEDS: PHENYLEPHRINE 100 MG in SODIUM CHLORIDE 0.9% 240 ML IV PRN ×3 (08:39→19:50)
[2020-08-23] MEDS: NOREPINEPHRINE 32 MG in SODIUM CHLORIDE 0.9% 218 ML IV PRN (08:47)
[2020-08-23] MEDS: CEFEPIME 1,000 MG in DEXTROSE 5% WATER 50 ML IV SCH ×2 (08:52→18:58)
[2020-08-23] MEDS: DEXT 5%/0.9% NACL 1,000 ML IV SCH (08:52)
[2020-08-23] MEDS: ASPIRIN 81MG EC TABLET PO SCH (09:00)
[2020-08-23] MEDS: PANTOPRAZOLE SODIUM 40 MG/VIAL IV SCH (09:47)
[2020-08-23 10:02] LABS: BG CARBOXYHEMOGLOBIN 1.1 % (0.5-1.5); BG DEOXYHEMOGLOBIN 1.4 % (0.0-5.0); BG FRACTION INSPIRED OXYGEN 100; BG HCO3 ACT 18.5 mmol/L (22.0-26.0); BG METHEMOGLOBIN 0.3 % (0.0-1.5); BG OXYGEN SATURATION 98.6 % (92.0-98.5); BG OXYHEMOGLOBIN 97.2 % (94.0-97.0); BG PCO2 57.2 mmHg (35.0-45.0); BG PH 7.128 (7.350-7.450); BG PO2 139.7 mmHg (75.0-100.0); BG SAMPLE SITE LEFT RADIAL; BG TOTAL HEMOGLOBIN 13.3 g/dL (12.0-18.0); BG TOTAL RESPIRATORY RATE 30 b/min; BG VENT MODE VENT-PRVC
[2020-08-23] MEDS ORDERED: SODIUM BICARBONATE 8.4% 1 MEQ/ML 50ML SYR IV NR ×2 (11:15→14:45)
[2020-08-23] MEDS ORDERED: AMIODARONE HCL 150 MG in DEXT 5% WATER 100 ML IV NR (12:00)
[2020-08-23] MEDS: SODIUM POLYSTYRENE SULFONATE 15 G/60 ML BOT PO SCH ×2 (13:00→16:23)
[2020-08-23] MEDS: VASOPRESSIN 20 UNIT in SODIUM CHLORIDE 0.9% 99 ML IV PRN ×2 (13:16→19:50)
[2020-08-23] MEDS: AMIODARONE HCL 900 MG in DEXT 5% WATER 482 ML IV SCH (13:17)
[2020-08-23] MEDS ORDERED: HEPARIN 1000 UNITS/ML 10ML ONE (15:11)
[2020-08-23] MEDS ORDERED: SODIUM POLYSTYRENE SULFONATE 15 G/60 ML BOT PO NR (16:00)
[2020-08-23] MEDS: ALBUMIN HUMAN 25GM/100ML (25%) IV SCH (16:24)
[2020-08-24] VITALS (94 sets, daily range): BP systolic 56–147; BP diastolic 31–84
[2020-08-24] MEDS: IPRATROPIUM BROMIDE (0.02%) 0.5MG/2.5ML NEB HHN SCH ×6 (00:29→20:58)
[2020-08-24] MEDS: MIDAZOLAM HCL 100 MG in DEXT 5% WATER 80 ML IV PRN ×4 (01:28→22:26)
[2020-08-24] MEDS: FENTANYL CITRATE/PF 2,500 MCG in SODIUM CHLORIDE 0.9% 200 ML IV PRN ×3 (02:43→17:54)
[2020-08-24 06:00] LABS: HEMATOCRIT. 35.8 % (42.0-52.0); HEMOGLOBIN. 11.6 g/dL (14.0-18.0); MEAN CORPUSCULAR HEMOGLOBIN 28.9 pg (28.0-32.0); MEAN PLATELET VOLUME 8.3 fl (7.4-10.4); PLATELET 242 x1000/uL (130-400); RED BLOOD CELL COUNT 4.02 mill/uL (4.7-6.1); RED CELL DISTRIBUTION WIDTH 15.3 % (11.6-14.6)
[2020-08-24] MEDS: DILTIAZEM HCL 60MG TABLET PO SCH ×4 (06:00→17:24)
[2020-08-24 06:09] LABS: CHLORIDE 108 mEq/L (98-107)
[2020-08-24] MEDS: BLOOD SUGAR DIAGNOSTIC STRIP TEST SCH ×4 (08:00→20:11)
[2020-08-24] MEDS ORDERED: CEFEPIME 1,000 MG in DEXTROSE 5% WATER 50 ML IV SCH (08:45)
[2020-08-24] MEDS: INSULIN LISPRO 100 UNITS/ML SUBCUT SCH ×4 (09:00→21:00)
[2020-08-24] MEDS: CEFEPIME 1,000 MG in DEXTROSE 5% WATER 50 ML IV SCH (09:24)
[2020-08-24] MEDS: ASPIRIN 81MG EC TABLET PO SCH (09:24)
[2020-08-24] MEDS: PANTOPRAZOLE SODIUM 40 MG/VIAL IV SCH (09:24)
[2020-08-24] MEDS: DEXT 5%/0.9% NACL 1,000 ML IV SCH (09:25)
[2020-08-24 09:35] LABS: BG BASE EXCESS -8.7 mmol/L (-2.0-2.0); BG CARBOXYHEMOGLOBIN 0.7 % (0.5-1.5); BG DEOXYHEMOGLOBIN 2.6 % (0.0-5.0); BG FRACTION INSPIRED OXYGEN 100; BG HCO3 ACT 18.3 mmol/L (22.0-26.0); BG OXYGEN SATURATION 97.4 % (92.0-98.5); BG OXYHEMOGLOBIN 96.7 % (94.0-97.0); BG PCO2 43.4 mmHg (35.0-45.0); BG PH 7.243 (7.350-7.450); BG PO2 103.6 mmHg (75.0-100.0); BG SAMPLE SITE RIGHT RADIAL; BG TOTAL HEMOGLOBIN 12.3 g/dL (12.0-18.0); BG VENT MODE PRVC
[2020-08-24] MEDS: AMIODARONE HCL 900 MG in DEXT 5% WATER 482 ML IV SCH (11:29)
[2020-08-24 11:50] LABS: PLATELET ESTIMATE NORMAL
[2020-08-24] MEDS: PHENYLEPHRINE 100 MG in SODIUM CHLORIDE 0.9% 240 ML IV PRN ×2 (13:59→21:19)
[2020-08-24] MEDS: ENOXAPARIN 100MG/ML SYR SUBCUT SCH (20:11)
[2020-08-24] MEDS: VASOPRESSIN 20 UNIT in SODIUM CHLORIDE 0.9% 99 ML IV PRN (22:00)
[2020-08-25] VITALS (97 sets, daily range): BP systolic 60–151; BP diastolic 33–112
[2020-08-25] MEDS: DILTIAZEM HCL 60MG TABLET PO SCH ×4 (00:26→17:17)
[2020-08-25] MEDS: IPRATROPIUM BROMIDE (0.02%) 0.5MG/2.5ML NEB HHN SCH ×6 (00:37→20:47)
[2020-08-25] MEDS: FENTANYL CITRATE/PF 2,500 MCG in SODIUM CHLORIDE 0.9% 200 ML IV PRN ×3 (00:51→19:01)
[2020-08-25] MEDS: PHENYLEPHRINE 100 MG in SODIUM CHLORIDE 0.9% 240 ML IV PRN ×3 (03:00→17:12)
[2020-08-25] MEDS: DEXT 5%/0.9% NACL 1,000 ML IV SCH (03:05)
[2020-08-25] MEDS: MIDAZOLAM HCL 100 MG in DEXT 5% WATER 80 ML IV PRN ×3 (05:09→20:12)
[2020-08-25 05:54] LABS: HEMATOCRIT. 34.8 % (42.0-52.0); HEMOGLOBIN. 11.7 g/dL (14.0-18.0); MEAN CORPUSCULAR HEMOGLOBIN 29.8 pg (28.0-32.0); MEAN CORPUSCULAR VOLUME 88.2 fL (80.0-94.0); MEAN PLATELET VOLUME 8.1 fl (7.4-10.4); PLATELET 158 x1000/uL (130-400); RED BLOOD CELL COUNT 3.94 mill/uL (4.7-6.1); RED CELL DISTRIBUTION WIDTH 15.7 % (11.6-14.6)
[2020-08-25 06:01] LABS: CHLORIDE 107 mEq/L (98-107)
[2020-08-25 06:12] LABS: PHOSPHORUS 5.5 mg/dL (2.5-4.9)
[2020-08-25] MEDS: INSULIN LISPRO 100 UNITS/ML SUBCUT SCH ×4 (06:26→21:00)
[2020-08-25] MEDS: BLOOD SUGAR DIAGNOSTIC STRIP TEST SCH ×4 (06:26→21:00)
[2020-08-25] MEDS: PANTOPRAZOLE SODIUM 40 MG/VIAL IV SCH (08:47)
[2020-08-25] MEDS: ASPIRIN 81MG EC TABLET PO SCH (08:49)
[2020-08-25] MEDS ORDERED: CEFEPIME 1,000 MG in DEXTROSE 5% WATER 50 ML IV SCH (09:00)
[2020-08-25 09:08] LABS: BG BASE EXCESS -7.6 mmol/L (-2.0-2.0); BG CARBOXYHEMOGLOBIN 0.2 % (0.5-1.5); BG DEOXYHEMOGLOBIN 2.9 % (0.0-5.0); BG FRACTION INSPIRED OXYGEN 100; BG HCO3 ACT 19.3 mmol/L (22.0-26.0); BG METHEMOGLOBIN 0.1 % (0.0-1.5); BG OXYGEN SATURATION 97.1 % (92.0-98.5); BG OXYHEMOGLOBIN 96.8 % (94.0-97.0); BG PCO2 44.2 mmHg (35.0-45.0); BG PH 7.257 (7.350-7.450); BG PO2 100.5 mmHg (75.0-100.0); BG SAMPLE SITE RIGHT RADIAL; BG TOTAL HEMOGLOBIN 12.3 g/dL (12.0-18.0); BG VENT MODE PRVC
[2020-08-25 09:45] LABS: PLATELET ESTIMATE NORMAL
[2020-08-25] MEDS: VASOPRESSIN 20 UNIT in SODIUM CHLORIDE 0.9% 99 ML IV PRN (10:41)
[2020-08-25] MEDS: AMIODARONE HCL 900 MG in DEXT 5% WATER 482 ML IV SCH (17:16)
[2020-08-25] MEDS: ENOXAPARIN 100MG/ML SYR SUBCUT SCH (21:00)
[2020-08-26] VITALS (95 sets, daily range): BP systolic 89–189; BP diastolic 40–85
[2020-08-26] MEDS: IPRATROPIUM BROMIDE (0.02%) 0.5MG/2.5ML NEB HHN SCH ×6 (00:33→20:31)
[2020-08-26] MEDS: FENTANYL CITRATE/PF 2,500 MCG in SODIUM CHLORIDE 0.9% 200 ML IV PRN ×4 (01:23→22:33)
[2020-08-26] MEDS: MIDAZOLAM HCL 100 MG in DEXT 5% WATER 80 ML IV PRN ×4 (02:34→22:33)
[2020-08-26] MEDS: DEXT 5%/0.9% NACL 1,000 ML IV SCH (05:05)
[2020-08-26 05:39] LABS: HEMATOCRIT. 31.9 % (42.0-52.0); HEMOGLOBIN. 10.7 g/dL (14.0-18.0); MEAN CORPUSCULAR HEMOGLOBIN 29.2 pg (28.0-32.0); MEAN CORPUSCULAR VOLUME 87.5 fL (80.0-94.0); MEAN PLATELET VOLUME 8.6 fl (7.4-10.4); PLATELET 130 x1000/uL (130-400); RED BLOOD CELL COUNT 3.65 mill/uL (4.7-6.1); RED CELL DISTRIBUTION WIDTH 15.3 % (11.6-14.6)
[2020-08-26] MEDS: DILTIAZEM HCL 60MG TABLET PO SCH ×3 (06:00→11:54)
[2020-08-26 06:04] LABS: CHLORIDE 104 mEq/L (98-107)
[2020-08-26 06:10] LABS: PHOSPHORUS 3.2 mg/dL (2.5-4.9)
[2020-08-26] MEDS: BLOOD SUGAR DIAGNOSTIC STRIP TEST SCH ×4 (06:35→20:15)
[2020-08-26] MEDS: INSULIN LISPRO 100 UNITS/ML SUBCUT SCH ×4 (06:35→20:15)
[2020-08-26 09:33] LABS: BG BASE EXCESS 0.6 mmol/L (-2.0-2.0); BG CARBOXYHEMOGLOBIN 0.2 % (0.5-1.5); BG DEOXYHEMOGLOBIN 3.6 % (0.0-5.0); BG FRACTION INSPIRED OXYGEN 100; BG HCO3 ACT 26.4 mmol/L (22.0-26.0); BG METHEMOGLOBIN 0.1 % (0.0-1.5); BG OXYGEN SATURATION 96.4 % (92.0-98.5); BG OXYHEMOGLOBIN 96.1 % (94.0-97.0); BG PCO2 47.7 mmHg (35.0-45.0); BG PH 7.361 (7.350-7.450); BG PO2 89.7 mmHg (75.0-100.0); BG SAMPLE SITE LEFT RADIAL; BG TOTAL HEMOGLOBIN 10.9 g/dL (12.0-18.0); BG TOTAL RESPIRATORY RATE 30 b/min; BG VENT MODE VENT- PRVC
[2020-08-26] MEDS: PANTOPRAZOLE SODIUM 40 MG/VIAL IV SCH (09:36)
[2020-08-26] MEDS: ASPIRIN 81MG EC TABLET PO SCH (09:36)
[2020-08-26] MEDS: DILTIAZEM HCL 30MG TABLET NG SCH ×2 (14:44→18:31)
[2020-08-26] MEDS: LACTULOSE 20G/30ML UDC PO SCH (15:38)
[2020-08-26] MEDS: ENOXAPARIN 100MG/ML SYR SUBCUT SCH (20:47)
[2020-08-26] MEDS ORDERED: METOPROLOL TARTRATE 25MG TABLET NG SCH (21:00)
[2020-08-27] VITALS (86 sets, daily range): BP systolic 82–149; BP diastolic 41–62
[2020-08-27] MEDS: BLOOD SUGAR DIAGNOSTIC STRIP TEST SCH ×5 (00:05→23:39)
[2020-08-27] MEDS: DILTIAZEM HCL 30MG TABLET NG SCH ×5 (00:11→23:41)
[2020-08-27] MEDS: IPRATROPIUM BROMIDE (0.02%) 0.5MG/2.5ML NEB HHN SCH ×6 (00:34→21:10)
[2020-08-27] MEDS: INSULIN LISPRO 100 UNITS/ML SUBCUT SCH ×5 (05:16→23:39)
[2020-08-27] MEDS: FENTANYL CITRATE/PF 2,500 MCG in SODIUM CHLORIDE 0.9% 200 ML IV PRN ×3 (06:30→22:25)
[2020-08-27 06:34] LABS: HEMOGLOBIN. 10.3 g/dL (14.0-18.0); MEAN CORPUSCULAR HEMOGLOBIN 29.6 pg (28.0-32.0); MEAN CORPUSCULAR VOLUME 86.7 fL (80.0-94.0); MEAN PLATELET VOLUME 8.8 fl (7.4-10.4); PLATELET 102 x1000/uL (130-400); RED BLOOD CELL COUNT 3.46 mill/uL (4.7-6.1); RED CELL DISTRIBUTION WIDTH 15.3 % (11.6-14.6)
[2020-08-27 07:47] LABS: PLATELET ESTIMATE NORMAL
[2020-08-27 08:30] LABS: BG BASE EXCESS -4.3 mmol/L (-2.0-2.0); BG CARBOXYHEMOGLOBIN 0.3 % (0.5-1.5); BG DEOXYHEMOGLOBIN 7.5 % (0.0-5.0); BG HCO3 ACT 21.1 mmol/L (22.0-26.0); BG METHEMOGLOBIN 0.3 % (0.0-1.5); BG OXYGEN SATURATION 92.5 % (92.0-98.5); BG OXYHEMOGLOBIN 91.9 % (94.0-97.0); BG PCO2 39.7 mmHg (35.0-45.0); BG PH 7.343 (7.350-7.450); BG PO2 67.3 mmHg (75.0-100.0); BG SAMPLE SITE RIGHT RADIAL; BG TOTAL HEMOGLOBIN 10.4 g/dL (12.0-18.0); BG VENT MODE VENT - APRV
[2020-08-27] MEDS: MIDAZOLAM HCL 100 MG in DEXT 5% WATER 80 ML IV PRN ×2 (09:07→18:38)
[2020-08-27] MEDS: LACTULOSE 20G/30ML UDC PO SCH (09:24)
[2020-08-27] MEDS: ASPIRIN 81MG EC TABLET PO SCH (09:24)
[2020-08-27] MEDS: DEXT 5%/0.9% NACL 1,000 ML IV SCH (09:24)
[2020-08-27] MEDS: PANTOPRAZOLE SODIUM 40 MG/VIAL IV SCH (09:24)
[2020-08-27 12:32] LABS: PLATELET ESTIMATE DECREASED
[2020-08-27] MEDS: ENOXAPARIN 100MG/ML SYR SUBCUT SCH (21:36)
[2020-08-28] VITALS (82 sets, daily range): BP systolic 80–148; BP diastolic 42–106
[2020-08-28] MEDS: IPRATROPIUM BROMIDE (0.02%) 0.5MG/2.5ML NEB HHN SCH ×5 (00:47→16:29)
[2020-08-28] MEDS: DILTIAZEM HCL 30MG TABLET NG SCH ×4 (05:16→23:35)
[2020-08-28] MEDS: BLOOD SUGAR DIAGNOSTIC STRIP TEST SCH ×4 (05:17→23:36)
[2020-08-28] MEDS: INSULIN LISPRO 100 UNITS/ML SUBCUT SCH ×4 (05:17→23:36)
[2020-08-28 05:54] LABS: CHLORIDE 107 mEq/L (98-107)
[2020-08-28] MEDS: MIDAZOLAM HCL 100 MG in DEXT 5% WATER 80 ML IV PRN ×2 (05:56→15:04)
[2020-08-28 06:01] LABS: HEMATOCRIT. 31.7 % (42.0-52.0); HEMOGLOBIN. 10.7 g/dL (14.0-18.0); MEAN CORPUSCULAR HEMOGLOBIN 29.9 pg (28.0-32.0); MEAN CORPUSCULAR VOLUME 88.9 fL (80.0-94.0); MEAN PLATELET VOLUME 9.1 fl (7.4-10.4); PLATELET 110 x1000/uL (130-400); RED BLOOD CELL COUNT 3.56 mill/uL (4.7-6.1)
[2020-08-28 06:06] LABS: PHOSPHORUS 5.2 mg/dL (2.5-4.9)
[2020-08-28] MEDS: FENTANYL CITRATE/PF 2,500 MCG in SODIUM CHLORIDE 0.9% 200 ML IV PRN ×3 (06:46→23:39)
[2020-08-28] MEDS: LACTULOSE 20G/30ML UDC PO SCH (09:33)
[2020-08-28] MEDS: DEXT 5%/0.9% NACL 1,000 ML IV SCH (09:34)
[2020-08-28] MEDS: PANTOPRAZOLE SODIUM 40 MG/VIAL IV SCH (09:34)
[2020-08-28] MEDS: ASPIRIN 81MG EC TABLET PO SCH (09:34)
[2020-08-28 09:49] LABS: BG BASE EXCESS -4.8 mmol/L (-2.0-2.0); BG CARBOXYHEMOGLOBIN 0.3 % (0.5-1.5); BG FRACTION INSPIRED OXYGEN 100; BG HCO3 ACT 22.2 mmol/L (22.0-26.0); BG METHEMOGLOBIN 0.1 % (0.0-1.5); BG OXYHEMOGLOBIN 97.6 % (94.0-97.0); BG PCO2 49.6 mmHg (35.0-45.0); BG PH 7.268 (7.350-7.450); BG PO2 125.7 mmHg (75.0-100.0); BG SAMPLE SITE RIGHT RADIAL; BG VENT MODE VENT - PRVC
[2020-08-28 13:07] LABS: PLATELET ESTIMATE SLIGHTLY DECREASED
[2020-08-28] MEDS: ENOXAPARIN 100MG/ML SYR SUBCUT SCH (22:10)
[2020-08-29] VITALS (94 sets, daily range): BP systolic 83–156; BP diastolic 42–82
[2020-08-29] MEDS: IPRATROPIUM BROMIDE (0.02%) 0.5MG/2.5ML NEB HHN SCH ×6 (01:18→20:57)
[2020-08-29] MEDS: MIDAZOLAM HCL 100 MG in DEXT 5% WATER 80 ML IV PRN ×3 (02:02→23:19)
[2020-08-29] MEDS: INSULIN LISPRO 100 UNITS/ML SUBCUT SCH ×4 (05:46→23:06)
[2020-08-29] MEDS: DILTIAZEM HCL 30MG TABLET NG SCH ×4 (05:46→23:20)
[2020-08-29] MEDS: BLOOD SUGAR DIAGNOSTIC STRIP TEST SCH ×4 (05:47→23:06)
[2020-08-29] MEDS: FENTANYL CITRATE/PF 2,500 MCG in SODIUM CHLORIDE 0.9% 200 ML IV PRN ×3 (07:30→23:20)
[2020-08-29 08:19] LABS: HEMATOCRIT. 33.3 % (42.0-52.0); HEMOGLOBIN. 11.2 g/dL (14.0-18.0); MEAN CORPUSCULAR HEMOGLOBIN 29.1 pg (28.0-32.0); MEAN CORPUSCULAR VOLUME 86.6 fL (80.0-94.0); MEAN PLATELET VOLUME 8.7 fl (7.4-10.4); PLATELET 144 x1000/uL (130-400); RED BLOOD CELL COUNT 3.85 mill/uL (4.7-6.1); RED CELL DISTRIBUTION WIDTH 15.8 % (11.6-14.6)
[2020-08-29 08:35] LABS: PHOSPHORUS 3.6 mg/dL (2.5-4.9)
[2020-08-29] MEDS: PANTOPRAZOLE SODIUM 40 MG/VIAL IV SCH (08:48)
[2020-08-29] MEDS: ASPIRIN 81MG EC TABLET PO SCH (08:48)
[2020-08-29] MEDS: DEXT 5%/0.9% NACL 1,000 ML IV SCH (08:49)
[2020-08-29] MEDS: LACTULOSE 20G/30ML UDC PO SCH (08:49)
[2020-08-29 09:31] LABS: NUCLEATED RED BLOOD CELLS 1 /100 WBC; PLATELET ESTIMATE NORMAL
[2020-08-29 09:59] LABS: BG BASE EXCESS -4.4 mmol/L (-2.0-2.0); BG CARBOXYHEMOGLOBIN 0.1 % (0.5-1.5); BG DEOXYHEMOGLOBIN 1.1 % (0.0-5.0); BG FRACTION INSPIRED OXYGEN 100; BG HCO3 ACT 21.1 mmol/L (22.0-26.0); BG METHEMOGLOBIN 0.3 % (0.0-1.5); BG OXYGEN SATURATION 98.9 % (92.0-98.5); BG OXYHEMOGLOBIN 98.5 % (94.0-97.0); BG PCO2 40.4 mmHg (35.0-45.0); BG PH 7.335 (7.350-7.450); BG PO2 178.7 mmHg (75.0-100.0); BG SAMPLE SITE LEFT RADIAL; BG TOTAL RESPIRATORY RATE 30 b/min; BG VENT MODE VENT- PRVC
[2020-08-29] MEDS: ENOXAPARIN 100MG/ML SYR SUBCUT SCH (20:30)
[2020-08-30] VITALS (95 sets, daily range): BP systolic 94–144; BP diastolic 47–75
[2020-08-30] MEDS: IPRATROPIUM BROMIDE (0.02%) 0.5MG/2.5ML NEB HHN SCH ×6 (00:47→20:26)
[2020-08-30] MEDS: BLOOD SUGAR DIAGNOSTIC STRIP TEST SCH ×3 (05:58→17:20)
[2020-08-30] MEDS: DILTIAZEM HCL 30MG TABLET NG SCH ×3 (06:00→21:11)
[2020-08-30] MEDS: INSULIN LISPRO 100 UNITS/ML SUBCUT SCH ×3 (06:00→17:39)
[2020-08-30 06:10] LABS: HEMATOCRIT. 30.5 % (42.0-52.0); HEMOGLOBIN. 10.5 g/dL (14.0-18.0); MEAN CORPUSCULAR HEMOGLOBIN 29.6 pg (28.0-32.0); MEAN CORPUSCULAR VOLUME 86.5 fL (80.0-94.0); MEAN PLATELET VOLUME 8.6 fl (7.4-10.4); PLATELET 136 x1000/uL (130-400); RED BLOOD CELL COUNT 3.53 mill/uL (4.7-6.1); RED CELL DISTRIBUTION WIDTH 15.4 % (11.6-14.6)
[2020-08-30 06:24] LABS: PHOSPHORUS 4.4 mg/dL (2.5-4.9)
[2020-08-30] MEDS: FENTANYL CITRATE/PF 2,500 MCG in SODIUM CHLORIDE 0.9% 200 ML IV PRN ×3 (06:36→20:53)
[2020-08-30] MEDS: MIDAZOLAM HCL 100 MG in DEXT 5% WATER 80 ML IV PRN ×2 (06:36→17:14)
[2020-08-30 07:46] LABS: PLATELET ESTIMATE NORMAL
[2020-08-30] MEDS: ASPIRIN 81MG EC TABLET PO SCH (08:55)
[2020-08-30] MEDS: PANTOPRAZOLE SODIUM 40 MG/VIAL IV SCH (08:55)
[2020-08-30] MEDS: LACTULOSE 20G/30ML UDC PO SCH (08:55)
[2020-08-30 09:03] LABS: BG BASE EXCESS -3.1 mmol/L (-2.0-2.0); BG CARBOXYHEMOGLOBIN 0.3 % (0.5-1.5); BG DEOXYHEMOGLOBIN 2.3 % (0.0-5.0); BG FRACTION INSPIRED OXYGEN 80; BG HCO3 ACT 22.1 mmol/L (22.0-26.0); BG METHEMOGLOBIN 0.3 % (0.0-1.5); BG OXYGEN SATURATION 97.7 % (92.0-98.5); BG OXYHEMOGLOBIN 97.1 % (94.0-97.0); BG PCO2 40.1 mmHg (35.0-45.0); BG PH 7.359 (7.350-7.450); BG PO2 111.5 mmHg (75.0-100.0); BG SAMPLE SITE RIGHT RADIAL; BG TOTAL HEMOGLOBIN 9.4 g/dL (12.0-18.0); BG VENT MODE PRVC
[2020-08-30 11:10] LABS: PROTHROMBIN TIME 10.5 sec (9.6-11.0)
[2020-08-30 11:21] LABS: FIBRINOGEN > 900 mg/dL (200-400)
[2020-08-30] MEDS: DOCUSATE SODIUM SUGAR FREE 100MG/10ML UDC NG SCH (17:22)
[2020-08-30] MEDS: POLYVINYL ALCOHOL OPHTH DROPS 15ML EACHEYE SCH (21:00)
[2020-08-31] VITALS (97 sets, daily range): BP systolic 78–153; BP diastolic 49–95
[2020-08-31] MEDS: BLOOD SUGAR DIAGNOSTIC STRIP TEST SCH ×5 (00:10→23:31)
[2020-08-31] MEDS: ACETAMINOPHEN 325MG TABLET PO PRN (00:16)
[2020-08-31] MEDS: IPRATROPIUM BROMIDE (0.02%) 0.5MG/2.5ML NEB HHN SCH ×6 (00:20→20:50)
[2020-08-31] MEDS: MIDAZOLAM HCL 100 MG in DEXT 5% WATER 80 ML IV PRN ×4 (01:23→23:30)
[2020-08-31] MEDS: FENTANYL CITRATE/PF 2,500 MCG in SODIUM CHLORIDE 0.9% 200 ML IV PRN ×3 (04:15→19:43)
[2020-08-31] MEDS: DILTIAZEM HCL 30MG TABLET NG SCH ×3 (05:15→21:33)
[2020-08-31] MEDS: INSULIN LISPRO 100 UNITS/ML SUBCUT SCH ×5 (06:00→23:32)
[2020-08-31] MEDS: PHENYLEPHRINE 100 MG in SODIUM CHLORIDE 0.9% 240 ML IV PRN (06:29)
[2020-08-31 07:01] LABS: HEMATOCRIT. 30.1 % (42.0-52.0); HEMOGLOBIN. 10.2 g/dL (14.0-18.0); MEAN CORPUSCULAR HEMOGLOBIN 29.7 pg (28.0-32.0); MEAN CORPUSCULAR VOLUME 87.3 fL (80.0-94.0); MEAN PLATELET VOLUME 8.6 fl (7.4-10.4); PLATELET 153 x1000/uL (130-400); RED BLOOD CELL COUNT 3.45 mill/uL (4.7-6.1)
[2020-08-31 07:20] LABS: PHOSPHORUS 4.1 mg/dL (2.5-4.9)
[2020-08-31] MEDS: ASPIRIN 81MG EC TABLET PO SCH (08:59)
[2020-08-31] MEDS: DOCUSATE SODIUM SUGAR FREE 100MG/10ML UDC NG SCH ×2 (08:59→16:45)
[2020-08-31] MEDS: LACTULOSE 20G/30ML UDC PO SCH (08:59)
[2020-08-31] MEDS: PANTOPRAZOLE SODIUM 40 MG/VIAL IV SCH (08:59)
[2020-08-31] MEDS: POLYVINYL ALCOHOL OPHTH DROPS 15ML EACHEYE SCH ×2 (09:00→16:45)
[2020-08-31 09:24] LABS: BG BASE EXCESS 0.2 mmol/L (-2.0-2.0); BG CARBOXYHEMOGLOBIN 0.3 % (0.5-1.5); BG DEOXYHEMOGLOBIN 4.5 % (0.0-5.0); BG HCO3 ACT 25.3 mmol/L (22.0-26.0); BG METHEMOGLOBIN 0.1 % (0.0-1.5); BG OXYGEN SATURATION 95.5 % (92.0-98.5); BG OXYHEMOGLOBIN 95.1 % (94.0-97.0); BG PCO2 42.6 mmHg (35.0-45.0); BG PH 7.391 (7.350-7.450); BG PO2 79.2 mmHg (75.0-100.0); BG SAMPLE SITE RIGHT RADIAL; BG TOTAL HEMOGLOBIN 10.7 g/dL (12.0-18.0); BG VENT MODE VENT - APRV
[2020-08-31] MEDS: ENOXAPARIN 120MG/0.8ML SYR SUBCUT SCH (10:35)
[2020-08-31 10:48] LABS: PLATELET ESTIMATE NORMAL
[2020-09-01] VITALS (97 sets, daily range): BP systolic 93–178; BP diastolic 45–86
[2020-09-01] MEDS: ACETAMINOPHEN 325MG TABLET PO PRN (00:32)
[2020-09-01] MEDS: IPRATROPIUM BROMIDE (0.02%) 0.5MG/2.5ML NEB HHN SCH ×7 (00:46→20:50)
[2020-09-01] MEDS: FENTANYL CITRATE/PF 2,500 MCG in SODIUM CHLORIDE 0.9% 200 ML IV PRN ×3 (02:18→18:08)
[2020-09-01 05:54] LABS: HEMATOCRIT. 32.2 % (42.0-52.0); HEMOGLOBIN. 10.8 g/dL (14.0-18.0); MEAN CORPUSCULAR HEMOGLOBIN 28.9 pg (28.0-32.0); MEAN CORPUSCULAR VOLUME 86.3 fL (80.0-94.0); MEAN PLATELET VOLUME 8.7 fl (7.4-10.4); PLATELET 178 x1000/uL (130-400); RED BLOOD CELL COUNT 3.74 mill/uL (4.7-6.1); RED CELL DISTRIBUTION WIDTH 16.1 % (11.6-14.6)
[2020-09-01] MEDS: INSULIN LISPRO 100 UNITS/ML SUBCUT SCH ×4 (06:00→23:46)
[2020-09-01] MEDS: MIDAZOLAM HCL 100 MG in DEXT 5% WATER 80 ML IV PRN ×3 (06:16→20:16)
[2020-09-01] MEDS: DILTIAZEM HCL 30MG TABLET NG SCH ×3 (06:17→22:00)
[2020-09-01] MEDS: BLOOD SUGAR DIAGNOSTIC STRIP TEST SCH ×4 (06:54→23:46)
[2020-09-01] MEDS: ASPIRIN 81MG EC TABLET PO SCH (08:49)
[2020-09-01] MEDS: DOCUSATE SODIUM SUGAR FREE 100MG/10ML UDC NG SCH ×2 (08:49→17:32)
[2020-09-01] MEDS: PANTOPRAZOLE SODIUM 40 MG/VIAL IV SCH (08:50)
[2020-09-01] MEDS: LACTULOSE 20G/30ML UDC PO SCH (08:51)
[2020-09-01] MEDS: POLYVINYL ALCOHOL OPHTH DROPS 15ML EACHEYE SCH ×2 (08:52→17:32)
[2020-09-01] MEDS: ENOXAPARIN 120MG/0.8ML SYR SUBCUT SCH (08:52)
[2020-09-01] MEDS ORDERED: KCL 20MEQ/100ML PREMIX 100 ML IV SCH (09:00)
[2020-09-01 09:04] LABS: BG BASE EXCESS -2.4 mmol/L (-2.0-2.0); BG CARBOXYHEMOGLOBIN 0.1 % (0.5-1.5); BG DEOXYHEMOGLOBIN 4.2 % (0.0-5.0); BG HCO3 ACT 24.2 mmol/L (22.0-26.0); BG METHEMOGLOBIN 0.3 % (0.0-1.5); BG OXYGEN SATURATION 95.8 % (92.0-98.5); BG OXYHEMOGLOBIN 95.4 % (94.0-97.0); BG PCO2 50.5 mmHg (35.0-45.0); BG PH 7.298 (7.350-7.450); BG SAMPLE SITE RIGHT RADIAL; BG VENT MODE VENT - APRV
[2020-09-01 10:47] LABS: NUCLEATED RED BLOOD CELLS 1 /100 WBC; PLATELET ESTIMATE NORMAL
[2020-09-02] VITALS (48 sets, daily range): BP systolic 95–139; BP diastolic 50–74
[2020-09-02] MEDS: FENTANYL CITRATE/PF 2,500 MCG in SODIUM CHLORIDE 0.9% 200 ML IV PRN ×3 (01:43→20:16)
[2020-09-02] MEDS: MIDAZOLAM HCL 100 MG in DEXT 5% WATER 80 ML IV PRN ×3 (03:20→18:23)
[2020-09-02] MEDS: IPRATROPIUM BROMIDE (0.02%) 0.5MG/2.5ML NEB HHN SCH ×5 (04:00→21:35)
[2020-09-02] MEDS: BLOOD SUGAR DIAGNOSTIC STRIP TEST SCH ×3 (05:45→16:18)
[2020-09-02] MEDS: INSULIN LISPRO 100 UNITS/ML SUBCUT SCH ×3 (05:45→16:19)
[2020-09-02] MEDS: DILTIAZEM HCL 30MG TABLET NG SCH ×3 (05:48→21:45)
[2020-09-02 05:49] LABS: HEMATOCRIT. 30.9 % (42.0-52.0); HEMOGLOBIN. 10.4 g/dL (14.0-18.0); MEAN CORPUSCULAR HEMOGLOBIN 29.1 pg (28.0-32.0); MEAN CORPUSCULAR VOLUME 86.8 fL (80.0-94.0); PLATELET 178 x1000/uL (130-400); RED BLOOD CELL COUNT 3.56 mill/uL (4.7-6.1); RED CELL DISTRIBUTION WIDTH 16.4 % (11.6-14.6)
[2020-09-02 06:10] LABS: PHOSPHORUS 6.4 mg/dL (2.5-4.9)
[2020-09-02 07:20] LABS: PLATELET ESTIMATE NORMAL
[2020-09-02] MEDS: ENOXAPARIN 120MG/0.8ML SYR SUBCUT SCH (09:09)
[2020-09-02] MEDS: ASPIRIN 81MG EC TABLET PO SCH (09:10)
[2020-09-02] MEDS: PANTOPRAZOLE SODIUM 40 MG/VIAL IV SCH (09:10)
[2020-09-02] MEDS: DOCUSATE SODIUM SUGAR FREE 100MG/10ML UDC NG SCH ×2 (09:10→16:58)
[2020-09-02] MEDS: LACTULOSE 20G/30ML UDC PO SCH (09:10)
[2020-09-02] MEDS: POLYVINYL ALCOHOL OPHTH DROPS 15ML EACHEYE SCH ×2 (10:29→17:00)
[2020-09-03] VITALS (50 sets, daily range): BP systolic 90–148; BP diastolic 47–76
[2020-09-03] MEDS: MIDAZOLAM HCL 100 MG in DEXT 5% WATER 80 ML IV PRN ×3 (00:48→21:15)
[2020-09-03] MEDS: IPRATROPIUM BROMIDE (0.02%) 0.5MG/2.5ML NEB HHN SCH ×7 (00:50→21:10)
[2020-09-03] MEDS: INSULIN LISPRO 100 UNITS/ML SUBCUT SCH ×4 (06:00→16:46)
[2020-09-03] MEDS: BLOOD SUGAR DIAGNOSTIC STRIP TEST SCH ×4 (06:00→16:45)
[2020-09-03] MEDS: DILTIAZEM HCL 30MG TABLET NG SCH ×3 (06:01→21:18)
[2020-09-03 06:07] LABS: HEMOGLOBIN. 10.2 g/dL (14.0-18.0); MEAN CORPUSCULAR HEMOGLOBIN 29.2 pg (28.0-32.0); MEAN PLATELET VOLUME 8.7 fl (7.4-10.4); PLATELET 215 x1000/uL (130-400); RED BLOOD CELL COUNT 3.49 mill/uL (4.7-6.1); RED CELL DISTRIBUTION WIDTH 16.6 % (11.6-14.6)
[2020-09-03 06:18] LABS: PHOSPHORUS 4.6 mg/dL (2.5-4.9)
[2020-09-03] MEDS: FENTANYL CITRATE/PF 2,500 MCG in SODIUM CHLORIDE 0.9% 200 ML IV PRN ×2 (06:36→21:16)
[2020-09-03 07:29] LABS: ATYPICAL LYMPHOCYTES 1; PLATELET ESTIMATE NORMAL
[2020-09-03 08:13] LABS: BG BASE EXCESS -2.9 mmol/L (-2.0-2.0); BG CARBOXYHEMOGLOBIN 1.1 % (0.5-1.5); BG DEOXYHEMOGLOBIN 7.4 % (0.0-5.0); BG HCO3 ACT 23.2 mmol/L (22.0-26.0); BG METHEMOGLOBIN 0.7 % (0.0-1.5); BG OXYGEN SATURATION 92.5 % (92.0-98.5); BG OXYHEMOGLOBIN 90.8 % (94.0-97.0); BG PCO2 46.5 mmHg (35.0-45.0); BG PH 7.316 (7.350-7.450); BG PO2 70.5 mmHg (75.0-100.0); BG SAMPLE SITE RIGHT RADIAL; BG TOTAL HEMOGLOBIN 8.7 g/dL (12.0-18.0); BG VENT MODE VENT - APRV
[2020-09-03] MEDS: PANTOPRAZOLE SODIUM 40 MG/VIAL IV SCH (08:50)
[2020-09-03] MEDS: DOCUSATE SODIUM SUGAR FREE 100MG/10ML UDC NG SCH ×2 (08:50→17:17)
[2020-09-03] MEDS: ASPIRIN 81MG EC TABLET PO SCH (08:50)
[2020-09-03] MEDS: ENOXAPARIN 120MG/0.8ML SYR SUBCUT SCH (08:50)
[2020-09-03] MEDS: LACTULOSE 20G/30ML UDC PO SCH (08:50)
[2020-09-03] MEDS: POLYVINYL ALCOHOL OPHTH DROPS 15ML EACHEYE SCH ×2 (08:50→17:18)
[2020-09-03] MEDS: PHENYLEPHRINE 100 MG in SODIUM CHLORIDE 0.9% 240 ML IV PRN (14:03)
[2020-09-04] VITALS (81 sets, daily range): BP systolic 81–164; BP diastolic 45–84
[2020-09-04] MEDS: BLOOD SUGAR DIAGNOSTIC STRIP TEST SCH ×5 (00:21→23:37)
[2020-09-04] MEDS: IPRATROPIUM BROMIDE (0.02%) 0.5MG/2.5ML NEB HHN SCH ×5 (04:50→20:39)
[2020-09-04] MEDS: DILTIAZEM HCL 30MG TABLET NG SCH ×3 (05:57→21:15)
[2020-09-04] MEDS: INSULIN LISPRO 100 UNITS/ML SUBCUT SCH ×5 (06:00→23:47)
[2020-09-04 06:03] LABS: HEMATOCRIT. 27.3 % (42.0-52.0); HEMOGLOBIN. 9.3 g/dL (14.0-18.0); MEAN CORPUSCULAR HEMOGLOBIN 29.4 pg (28.0-32.0); MEAN CORPUSCULAR VOLUME 86.6 fL (80.0-94.0); MEAN PLATELET VOLUME 8.3 fl (7.4-10.4); PLATELET 234 x1000/uL (130-400); RED BLOOD CELL COUNT 3.16 mill/uL (4.7-6.1); RED CELL DISTRIBUTION WIDTH 16.5 % (11.6-14.6)
[2020-09-04] MEDS: MIDAZOLAM HCL 100 MG in DEXT 5% WATER 80 ML IV PRN ×3 (06:18→21:25)
[2020-09-04 07:47] LABS: PLATELET ESTIMATE NORMAL
[2020-09-04] MEDS: DOCUSATE SODIUM SUGAR FREE 100MG/10ML UDC NG SCH ×2 (09:19→17:48)
[2020-09-04] MEDS: ASPIRIN 81MG EC TABLET PO SCH (09:19)
[2020-09-04] MEDS: LACTULOSE 20G/30ML UDC PO SCH (09:19)
[2020-09-04] MEDS: ENOXAPARIN 120MG/0.8ML SYR SUBCUT SCH (09:20)
[2020-09-04] MEDS: PANTOPRAZOLE SODIUM 40 MG/VIAL IV SCH (09:20)
[2020-09-04] MEDS: POLYVINYL ALCOHOL OPHTH DROPS 15ML EACHEYE SCH ×2 (09:21→17:48)
[2020-09-04] MEDS: FENTANYL CITRATE/PF 2,500 MCG in SODIUM CHLORIDE 0.9% 200 ML IV PRN ×2 (09:23→21:25)
[2020-09-04 09:41] LABS: BG BASE EXCESS -1.3 mmol/L (-2.0-2.0); BG CARBOXYHEMOGLOBIN 0.3 % (0.5-1.5); BG DEOXYHEMOGLOBIN 8.6 % (0.0-5.0); BG FRACTION INSPIRED OXYGEN 100; BG METHEMOGLOBIN 0.2 % (0.0-1.5); BG OXYGEN SATURATION 91.4 % (92.0-98.5); BG OXYHEMOGLOBIN 90.9 % (94.0-97.0); BG PCO2 74.9 mmHg (35.0-45.0); BG PO2 69.5 mmHg (75.0-100.0); BG TOTAL HEMOGLOBIN 10.4 g/dL (12.0-18.0); BG VENT MODE VENT - PRVC
[2020-09-04 09:57] LABS: BG SAMPLE SITE LEFT RADIAL; BG VENT RATE 34 set
[2020-09-05] VITALS (65 sets, daily range): BP systolic 92–172; BP diastolic 48–92
[2020-09-05] MEDS: IPRATROPIUM BROMIDE (0.02%) 0.5MG/2.5ML NEB HHN SCH ×6 (00:44→20:58)
[2020-09-05 05:41] LABS: HEMATOCRIT. 29.6 % (42.0-52.0); HEMOGLOBIN. 9.8 g/dL (14.0-18.0); MEAN CORPUSCULAR HEMOGLOBIN 28.9 pg (28.0-32.0); MEAN CORPUSCULAR VOLUME 86.7 fL (80.0-94.0); PLATELET 267 x1000/uL (130-400); RED BLOOD CELL COUNT 3.41 mill/uL (4.7-6.1); RED CELL DISTRIBUTION WIDTH 16.4 % (11.6-14.6)
[2020-09-05] MEDS: BLOOD SUGAR DIAGNOSTIC STRIP TEST SCH ×3 (05:45→18:02)
[2020-09-05] MEDS: INSULIN LISPRO 100 UNITS/ML SUBCUT SCH ×3 (05:46→18:00)
[2020-09-05 06:05] LABS: PHOSPHORUS 6.5 mg/dL (2.5-4.9)
[2020-09-05] MEDS: DILTIAZEM HCL 30MG TABLET NG SCH ×3 (06:24→21:01)
[2020-09-05] MEDS: LACTULOSE 20G/30ML UDC PO SCH (09:17)
[2020-09-05] MEDS: DOCUSATE SODIUM SUGAR FREE 100MG/10ML UDC NG SCH ×2 (09:17→18:12)
[2020-09-05] MEDS: PANTOPRAZOLE SODIUM 40 MG/VIAL IV SCH (09:17)
[2020-09-05] MEDS: POLYVINYL ALCOHOL OPHTH DROPS 15ML EACHEYE SCH ×2 (09:17→18:13)
[2020-09-05] MEDS: ENOXAPARIN 120MG/0.8ML SYR SUBCUT SCH (09:18)
[2020-09-05] MEDS: ASPIRIN 81MG EC TABLET PO SCH (09:18)
[2020-09-05 09:22] LABS: PLATELET ESTIMATE NORMAL
[2020-09-05 09:36] LABS: BG BASE EXCESS -2.1 mmol/L (-2.0-2.0); BG CARBOXYHEMOGLOBIN 0.5 % (0.5-1.5); BG FRACTION INSPIRED OXYGEN 100; BG HCO3 ACT 25.8 mmol/L (22.0-26.0); BG METHEMOGLOBIN 0.3 % (0.0-1.5); BG OXYHEMOGLOBIN 97.2 % (94.0-97.0); BG PCO2 60.8 mmHg (35.0-45.0); BG PH 7.245 (7.350-7.450); BG PO2 131.8 mmHg (75.0-100.0); BG SAMPLE SITE RIGHT RADIAL; BG VENT MODE VENT - PRVC
[2020-09-05] MEDS: MIDAZOLAM HCL 100 MG in DEXT 5% WATER 80 ML IV PRN ×3 (09:45→21:03)
[2020-09-05] MEDS: FENTANYL CITRATE/PF 2,500 MCG in SODIUM CHLORIDE 0.9% 200 ML IV PRN ×2 (09:46→15:23)
[2020-09-05] MEDS: FUROSEMIDE 100MG/10ML VIAL IVP SCH (12:59)
[2020-09-05] MEDS: PHENYLEPHRINE 100 MG in SODIUM CHLORIDE 0.9% 240 ML IV PRN (15:20)
[2020-09-05] MEDS ORDERED: DIGOXIN 500MCG/2ML AMP IV NR (16:15)
[2020-09-05] MEDS ORDERED: DIGOXIN 500MCG/2ML AMP IV SCH (17:12)
[2020-09-05] MEDS: ACETAMINOPHEN 325MG TABLET PO PRN (18:13)
[2020-09-06] VITALS (83 sets, daily range): BP systolic 93–157; BP diastolic 45–90
[2020-09-06] MEDS: BLOOD SUGAR DIAGNOSTIC STRIP TEST SCH ×4 (00:34→17:40)
[2020-09-06] MEDS: FENTANYL CITRATE/PF 2,500 MCG in SODIUM CHLORIDE 0.9% 200 ML IV PRN ×3 (00:34→17:44)
[2020-09-06] MEDS: IPRATROPIUM BROMIDE (0.02%) 0.5MG/2.5ML NEB HHN SCH ×6 (00:52→22:01)
[2020-09-06 05:27] LABS: HEMATOCRIT. 30.5 % (42.0-52.0); HEMOGLOBIN. 10.2 g/dL (14.0-18.0); MEAN CORPUSCULAR HEMOGLOBIN 28.8 pg (28.0-32.0); MEAN CORPUSCULAR VOLUME 86.2 fL (80.0-94.0); MEAN PLATELET VOLUME 8.2 fl (7.4-10.4); PLATELET 263 x1000/uL (130-400); RED BLOOD CELL COUNT 3.54 mill/uL (4.7-6.1); RED CELL DISTRIBUTION WIDTH 16.9 % (11.6-14.6)
[2020-09-06] MEDS: INSULIN LISPRO 100 UNITS/ML SUBCUT SCH ×4 (06:00→17:40)
[2020-09-06] MEDS: DILTIAZEM HCL 30MG TABLET NG SCH ×3 (06:10→22:07)
[2020-09-06 07:35] LABS: PLATELET ESTIMATE NORMAL
[2020-09-06] MEDS: LACTULOSE 20G/30ML UDC PO SCH (09:31)
[2020-09-06] MEDS: PANTOPRAZOLE SODIUM 40 MG/VIAL IV SCH (09:31)
[2020-09-06] MEDS: DOCUSATE SODIUM SUGAR FREE 100MG/10ML UDC NG SCH ×2 (09:31→17:43)
[2020-09-06] MEDS: FUROSEMIDE 100MG/10ML VIAL IVP SCH (09:31)
[2020-09-06] MEDS: ENOXAPARIN 120MG/0.8ML SYR SUBCUT SCH (09:32)
[2020-09-06] MEDS: ASPIRIN 81MG EC TABLET PO SCH (09:32)
[2020-09-06] MEDS: POLYVINYL ALCOHOL OPHTH DROPS 15ML EACHEYE SCH ×2 (09:32→17:43)
[2020-09-06 12:55] LABS: BG BASE EXCESS -7.2 mmol/L (-2.0-2.0); BG CARBOXYHEMOGLOBIN 0.3 % (0.5-1.5); BG DEOXYHEMOGLOBIN 1.2 % (0.0-5.0); BG HCO3 ACT 21.1 mmol/L (22.0-26.0); BG METHEMOGLOBIN 0.3 % (0.0-1.5); BG OXYGEN SATURATION 98.8 % (92.0-98.5); BG OXYHEMOGLOBIN 98.2 % (94.0-97.0); BG PH 7.201 (7.350-7.450); BG PO2 213.8 mmHg (75.0-100.0); BG SAMPLE SITE RIGHT RADIAL; BG TOTAL HEMOGLOBIN 11.4 g/dL (12.0-18.0); BG VENT MODE VENT/PRVC
[2020-09-06] MEDS: MIDAZOLAM HCL 100 MG in DEXT 5% WATER 80 ML IV PRN (15:05)
[2020-09-06] MEDS: PHENYLEPHRINE 100 MG in SODIUM CHLORIDE 0.9% 240 ML IV PRN (17:45)
[2020-09-06] MEDS: SODIUM CHLORIDE 3% FOR INH 4ML UD NEB INH SCH (22:01)
[2020-09-06] MEDS: CEFEPIME 1,000 MG in DEXTROSE 5% WATER 50 ML IV SCH (23:27)
[2020-09-07] VITALS (81 sets, daily range): BP systolic 88–151; BP diastolic 42–99
[2020-09-07] MEDS: FENTANYL CITRATE/PF 2,500 MCG in SODIUM CHLORIDE 0.9% 200 ML IV PRN ×4 (00:25→23:44)
[2020-09-07] MEDS: IPRATROPIUM BROMIDE (0.02%) 0.5MG/2.5ML NEB HHN SCH ×7 (01:48→23:56)
[2020-09-07] MEDS ORDERED: DIGOXIN 500MCG/2ML AMP IV PRN (04:45)
[2020-09-07 05:34] LABS: HEMATOCRIT. 30.8 % (42.0-52.0); HEMOGLOBIN. 10.1 g/dL (14.0-18.0); MEAN CORPUSCULAR HEMOGLOBIN 28.7 pg (28.0-32.0); MEAN CORPUSCULAR VOLUME 87.6 fL (80.0-94.0); PLATELET 257 x1000/uL (130-400); RED BLOOD CELL COUNT 3.52 mill/uL (4.7-6.1); RED CELL DISTRIBUTION WIDTH 17.5 % (11.6-14.6)
[2020-09-07] MEDS: SODIUM CHLORIDE 3% FOR INH 4ML UD NEB INH SCH (05:49)
[2020-09-07] MEDS: INSULIN LISPRO 100 UNITS/ML SUBCUT SCH ×4 (06:00→18:05)
[2020-09-07] MEDS: BLOOD SUGAR DIAGNOSTIC STRIP TEST SCH ×4 (06:20→18:09)
[2020-09-07] MEDS: DILTIAZEM HCL 30MG TABLET NG SCH ×3 (06:20→22:46)
[2020-09-07] MEDS: MIDAZOLAM HCL 100 MG in DEXT 5% WATER 80 ML IV PRN ×2 (06:21→15:55)
[2020-09-07] MEDS: POLYVINYL ALCOHOL OPHTH DROPS 15ML EACHEYE SCH ×2 (09:00→17:03)
[2020-09-07] MEDS: FUROSEMIDE 100MG/10ML VIAL IVP SCH (09:13)
[2020-09-07] MEDS: LACTULOSE 20G/30ML UDC PO SCH (09:14)
[2020-09-07] MEDS: ENOXAPARIN 120MG/0.8ML SYR SUBCUT SCH (09:14)
[2020-09-07] MEDS: ASPIRIN 81MG EC TABLET PO SCH (09:14)
[2020-09-07] MEDS: PANTOPRAZOLE SODIUM 40 MG/VIAL IV SCH (09:14)
[2020-09-07] MEDS: DOCUSATE SODIUM SUGAR FREE 100MG/10ML UDC NG SCH ×2 (09:16→17:03)
[2020-09-07 09:34] LABS: BG BASE EXCESS -7.4 mmol/L (-2.0-2.0); BG CARBOXYHEMOGLOBIN 0.2 % (0.5-1.5); BG DEOXYHEMOGLOBIN 3.7 % (0.0-5.0); BG FRACTION INSPIRED OXYGEN 100; BG HCO3 ACT 21.1 mmol/L (22.0-26.0); BG METHEMOGLOBIN 0.3 % (0.0-1.5); BG OXYGEN SATURATION 96.3 % (92.0-98.5); BG OXYHEMOGLOBIN 95.8 % (94.0-97.0); BG PCO2 57.3 mmHg (35.0-45.0); BG PH 7.183 (7.350-7.450); BG PO2 94.6 mmHg (75.0-100.0); BG SAMPLE SITE RIGHT RADIAL; BG TOTAL HEMOGLOBIN 10.8 g/dL (12.0-18.0); BG VENT MODE PRVC
[2020-09-07] MEDS ORDERED: SODIUM BICARBONATE 8.4% 1 MEQ/ML 50ML SYR IV NR (10:00)
[2020-09-07 12:53] LABS: PLATELET ESTIMATE NORMAL
[2020-09-07] MEDS: NEO/POLYMYX B SULF/DEXAMETH OPHTH OINT 3.5GM RIGHTEYE SCH (20:48)
[2020-09-07] MEDS: CEFEPIME 1,000 MG in DEXTROSE 5% WATER 50 ML IV SCH (20:48)
[2020-09-08] VITALS (111 sets, daily range): BP systolic 40–145; BP diastolic 24–96
[2020-09-08] MEDS: BLOOD SUGAR DIAGNOSTIC STRIP TEST SCH ×4 (00:21→18:49)
[2020-09-08] MEDS: MIDAZOLAM HCL 100 MG in DEXT 5% WATER 80 ML IV PRN ×2 (02:00→14:15)
[2020-09-08] MEDS: IPRATROPIUM BROMIDE (0.02%) 0.5MG/2.5ML NEB HHN SCH ×5 (03:54→21:49)
[2020-09-08 05:17] LABS: HEMATOCRIT. 25.8 % (42.0-52.0); HEMOGLOBIN. 8.5 g/dL (14.0-18.0); MEAN CORPUSCULAR HEMOGLOBIN 28.9 pg (28.0-32.0); MEAN CORPUSCULAR VOLUME 87.3 fL (80.0-94.0); MEAN PLATELET VOLUME 7.9 fl (7.4-10.4); PLATELET 238 x1000/uL (130-400); RED BLOOD CELL COUNT 2.95 mill/uL (4.7-6.1); RED CELL DISTRIBUTION WIDTH 17.1 % (11.6-14.6)
[2020-09-08 05:31] LABS: CHLORIDE 108 mEq/L (98-107)
[2020-09-08 05:41] LABS: PHOSPHORUS 4.6 mg/dL (2.5-4.9)
[2020-09-08] MEDS: DILTIAZEM HCL 30MG TABLET NG SCH ×3 (05:50→22:00)
[2020-09-08] MEDS: INSULIN LISPRO 100 UNITS/ML SUBCUT SCH ×4 (05:50→18:00)
[2020-09-08] MEDS: FENTANYL CITRATE/PF 2,500 MCG in SODIUM CHLORIDE 0.9% 200 ML IV PRN ×2 (07:19→14:52)
[2020-09-08] MEDS: LACTULOSE 20G/30ML UDC PO SCH ×2 (09:00→09:10)
[2020-09-08] MEDS: PHENYLEPHRINE 100 MG in SODIUM CHLORIDE 0.9% 240 ML IV PRN ×2 (09:07→22:58)
[2020-09-08] MEDS: PANTOPRAZOLE SODIUM 40 MG/VIAL IV SCH (09:09)
[2020-09-08] MEDS: FUROSEMIDE 100MG/10ML VIAL IVP SCH (09:09)
[2020-09-08] MEDS: NEO/POLYMYX B SULF/DEXAMETH OPHTH OINT 3.5GM RIGHTEYE SCH ×2 (09:10→17:00)
[2020-09-08] MEDS: DOCUSATE SODIUM SUGAR FREE 100MG/10ML UDC NG SCH ×2 (09:10→17:00)
[2020-09-08] MEDS: POLYVINYL ALCOHOL OPHTH DROPS 15ML EACHEYE SCH ×2 (09:10→17:00)
[2020-09-08] MEDS: ASPIRIN 81MG EC TABLET PO SCH (09:10)
[2020-09-08] MEDS: ENOXAPARIN 120MG/0.8ML SYR SUBCUT SCH (09:10)
[2020-09-08 10:43] LABS: PLATELET ESTIMATE NORMAL
[2020-09-08 11:59] LABS: BG BASE EXCESS -5.2 mmol/L (-2.0-2.0); BG CARBOXYHEMOGLOBIN 0.3 % (0.5-1.5); BG DEOXYHEMOGLOBIN 9.3 % (0.0-5.0); BG FRACTION INSPIRED OXYGEN 90; BG HCO3 ACT 23.9 mmol/L (22.0-26.0); BG METHEMOGLOBIN 0.2 % (0.0-1.5); BG OXYGEN SATURATION 90.7 % (92.0-98.5); BG OXYHEMOGLOBIN 90.2 % (94.0-97.0); BG PH 7.171 (7.350-7.450); BG PO2 66.5 mmHg (75.0-100.0); BG SAMPLE SITE RIGHT RADIAL; BG TOTAL HEMOGLOBIN 10.6 g/dL (12.0-18.0); BG VENT MODE PRVC
[2020-09-08] MEDS ORDERED: SODIUM BICARBONATE 8.4% 1 MEQ/ML 50ML SYR IV NR ×2 (12:00)
[2020-09-08 16:22] LABS: MEAN CORPUSCULAR HEMOGLOBIN 28.9 pg (28.0-32.0); MEAN PLATELET VOLUME 7.6 fl (7.4-10.4); PLATELET 228 x1000/uL (130-400); RED CELL DISTRIBUTION WIDTH 17.1 % (11.6-14.6)
[2020-09-08 16:41] LABS: CHLORIDE 108 mEq/L (98-107)
[2020-09-08 16:47] LABS: PHOSPHORUS 6.1 mg/dL (2.5-4.9)
[2020-09-08 16:59] LABS: PLATELET ESTIMATE NORMAL
[2020-09-08] MEDS ORDERED: SUCCINYLCHOLINE CHLORIDE 200MG/10ML IV ONE (21:00)
[2020-09-08] MEDS: NOREPINEPHRINE 32 MG in SODIUM CHLORIDE 0.9% 218 ML IV PRN ×2 (21:00→22:51)
[2020-09-08] MEDS ORDERED: ATROPINE SULFATE 1MG/10ML SYR IV ONE (21:00)
[2020-09-08] MEDS: VASOPRESSIN 20 UNIT in SODIUM CHLORIDE 0.9% 99 ML IV PRN (21:01)
[2020-09-08 21:15] LABS: BG BASE EXCESS -21.2 mmol/L (-2.0-2.0); BG DEOXYHEMOGLOBIN 27.4 % (0.0-5.0); BG FRACTION INSPIRED OXYGEN 100; BG HCO3 ACT 12.7 mmol/L (22.0-26.0); BG METHEMOGLOBIN 0.3 % (0.0-1.5); BG OXYGEN SATURATION 72.5 % (92.0-98.5); BG OXYHEMOGLOBIN 72.3 % (94.0-97.0); BG PCO2 77.3 mmHg (35.0-45.0); BG PH 6.835 (7.350-7.450); BG PO2 56.2 mmHg (75.0-100.0); BG SAMPLE SITE RIGHT RADIAL; BG TOTAL HEMOGLOBIN 10.3 g/dL (12.0-18.0); BG VENT MODE PRVC/AC
[2020-09-08] MEDS: CEFEPIME 1,000 MG in DEXTROSE 5% WATER 50 ML IV SCH (22:52)
[2020-09-09] VITALS (84 sets, daily range): BP systolic 64–155; BP diastolic 33–114
[2020-09-09] MEDS: IPRATROPIUM BROMIDE (0.02%) 0.5MG/2.5ML NEB HHN SCH ×6 (00:36→20:59)
[2020-09-09] MEDS: VASOPRESSIN 20 UNIT in SODIUM CHLORIDE 0.9% 99 ML IV PRN ×2 (02:54→22:38)
[2020-09-09] MEDS: NOREPINEPHRINE 32 MG in SODIUM CHLORIDE 0.9% 218 ML IV PRN ×3 (02:54→18:56)
[2020-09-09] MEDS: PHENYLEPHRINE 100 MG in SODIUM CHLORIDE 0.9% 240 ML IV PRN ×3 (03:35→22:37)
[2020-09-09] MEDS: FENTANYL CITRATE/PF 2,500 MCG in SODIUM CHLORIDE 0.9% 200 ML IV PRN ×3 (04:49→20:16)
[2020-09-09 05:23] LABS: CHLORIDE 107 mEq/L (98-107)
[2020-09-09 05:47] LABS: PHOSPHORUS 8.3 mg/dL (2.5-4.9)
[2020-09-09 05:56] LABS: HEMATOCRIT. 33.6 % (42.0-52.0); HEMOGLOBIN. 10.6 g/dL (14.0-18.0); MEAN CORPUSCULAR HEMOGLOBIN 28.5 pg (28.0-32.0); MEAN PLATELET VOLUME 8.3 fl (7.4-10.4); PLATELET 350 x1000/uL (130-400); RED BLOOD CELL COUNT 3.74 mill/uL (4.7-6.1); RED CELL DISTRIBUTION WIDTH 18.2 % (11.6-14.6)
[2020-09-09] MEDS: INSULIN LISPRO 100 UNITS/ML SUBCUT SCH ×3 (06:00→12:00)
[2020-09-09] MEDS: MIDAZOLAM HCL 100 MG in DEXT 5% WATER 80 ML IV PRN ×3 (06:00→20:59)
[2020-09-09] MEDS: DILTIAZEM HCL 30MG TABLET NG SCH ×4 (06:00→21:01)
[2020-09-09] MEDS: BLOOD SUGAR DIAGNOSTIC STRIP TEST SCH ×2 (06:18)
[2020-09-09] MEDS: ASPIRIN 81MG EC TABLET PO SCH (09:55)
[2020-09-09] MEDS: DOCUSATE SODIUM SUGAR FREE 100MG/10ML UDC NG SCH ×2 (09:55→17:00)
[2020-09-09] MEDS: LACTULOSE 20G/30ML UDC PO SCH (09:55)
[2020-09-09] MEDS: NEO/POLYMYX B SULF/DEXAMETH OPHTH OINT 3.5GM RIGHTEYE SCH ×2 (09:56→17:00)
[2020-09-09] MEDS: ENOXAPARIN 120MG/0.8ML SYR SUBCUT SCH (09:56)
[2020-09-09] MEDS: POLYVINYL ALCOHOL OPHTH DROPS 15ML EACHEYE SCH ×2 (09:56→17:00)
[2020-09-09] MEDS: PANTOPRAZOLE SODIUM 40 MG/VIAL IV SCH (09:56)
[2020-09-09] MEDS: FUROSEMIDE 100MG/10ML VIAL IVP SCH (09:56)
[2020-09-09 10:16] LABS: NUCLEATED RED BLOOD CELLS 4 /100 WBC; PLATELET ESTIMATE NORMAL
[2020-09-09 10:26] LABS: BG CARBOXYHEMOGLOBIN 1.4 % (0.5-1.5); BG DEOXYHEMOGLOBIN 31.7 % (0.0-5.0); BG FRACTION INSPIRED OXYGEN 100; BG HCO3 ACT 16.5 mmol/L (22.0-26.0); BG OXYGEN SATURATION 67.8 % (92.0-98.5); BG OXYHEMOGLOBIN 66.9 % (94.0-97.0); BG PCO2 63.1 mmHg (35.0-45.0); BG PH 7.036 (7.350-7.450); BG PO2 42.9 mmHg (75.0-100.0); BG SAMPLE SITE RIGHT RADIAL; BG TOTAL HEMOGLOBIN 10.1 g/dL (12.0-18.0); BG VENT MODE VENT - PRVC
[2020-09-09] MEDS ORDERED: SODIUM BICARBONATE 8.4% 1 MEQ/ML 50ML SYR IV NR (10:45)
[2020-09-09] MEDS: CEFEPIME 1,000 MG in DEXTROSE 5% WATER 50 ML IV SCH (20:57)
[2020-09-10] VITALS (28 sets, daily range): BP systolic 51–133; BP diastolic 17–84
[2020-09-10] MEDS: IPRATROPIUM BROMIDE (0.02%) 0.5MG/2.5ML NEB HHN SCH ×3 (00:20→08:16)
[2020-09-10] MEDS: FENTANYL CITRATE/PF 2,500 MCG in SODIUM CHLORIDE 0.9% 200 ML IV PRN (04:09)
[2020-09-10] MEDS: PHENYLEPHRINE 100 MG in SODIUM CHLORIDE 0.9% 240 ML IV PRN ×2 (04:11→09:11)
[2020-09-10] MEDS ORDERED: DEXTROSE 50% WATER 50ML SYRINGE IV ONE (05:58)
[2020-09-10] MEDS: DILTIAZEM HCL 30MG TABLET NG SCH ×2 (06:00→09:13)
[2020-09-10 06:12] LABS: BASOPHILS % 0.1 % (0.0-2.0); EOSINOPHILS % 1.3 % (0.0-5.0); HEMATOCRIT. 26.6 % (42.0-52.0); LYMPHOCYTES % 9.2 % (20.0-50.0); MEAN CORPUSCULAR HEMOGLOBIN 29.2 pg (28.0-32.0); MEAN CORPUSCULAR VOLUME 92.1 fL (80.0-94.0); MEAN PLATELET VOLUME 8.6 fl (7.4-10.4); NEUTROPHILS % 84.4 % (40.0-76.0); PLATELET 257 x1000/uL (130-400); RED BLOOD CELL COUNT 2.89 mill/uL (4.7-6.1); RED CELL DISTRIBUTION WIDTH 19.4 % (11.6-14.6)
[2020-09-10] MEDS ORDERED: DEXTROSE 50% WATER 50ML SYRINGE IV PRN (06:15)
[2020-09-10 06:16] LABS: CHLORIDE 108 mEq/L (98-107)
[2020-09-10] MEDS ORDERED: SODIUM CHLORIDE IV SCH (07:15)
[2020-09-10] MEDS ORDERED: [UNRECOGNIZED DRUG - OTHER] IV SCH (07:15)
[2020-09-10] MEDS: VASOPRESSIN 20 UNIT in SODIUM CHLORIDE 0.9% 99 ML IV PRN (07:44)
[2020-09-10 08:08] LABS: PHOSPHORUS > 9.0 mg/dL (2.5-4.9)
[2020-09-10 08:10] LABS: HEMOGLOBIN. 8.5 g/dL (14.0-18.0)
[2020-09-10] MEDS ORDERED: SODIUM BICARBONATE 8.4% 1 MEQ/ML 50ML SYR IV NR (08:15)
[2020-09-10] MEDS ORDERED: NOREPINEPHRINE 32 MG in DEXT 5% WATER 218 ML IV PRN (09:00)
[2020-09-10] MEDS ORDERED: FENTANYL CITRATE/PF 2,500 MCG in DEXT 5% WATER 200 ML IV PRN ×2 (09:00→10:45)
[2020-09-10] MEDS ORDERED: SODIUM CHLORIDE 23.4% 154 MEQ in DEXT 10% WATER 1,000 ML IV SCH (09:00)
[2020-09-10] MEDS ORDERED: SODIUM POLYSTYRENE SULFONATE 15 G/60 ML BOT PO SCH (09:00)
[2020-09-10] MEDS: PANTOPRAZOLE SODIUM 40 MG/VIAL IV SCH (09:12)
[2020-09-10] MEDS: FUROSEMIDE 100MG/10ML VIAL IVP SCH (09:12)
[2020-09-10] MEDS: ASPIRIN 81MG EC TABLET PO SCH (09:13)
[2020-09-10] MEDS: DOCUSATE SODIUM SUGAR FREE 100MG/10ML UDC NG SCH (09:13)
[2020-09-10] MEDS: LACTULOSE 20G/30ML UDC PO SCH (09:13)
[2020-09-10] MEDS: NEO/POLYMYX B SULF/DEXAMETH OPHTH OINT 3.5GM RIGHTEYE SCH (09:15)
[2020-09-10] MEDS: ENOXAPARIN 120MG/0.8ML SYR SUBCUT SCH (09:15)
[2020-09-10] MEDS: POLYVINYL ALCOHOL OPHTH DROPS 15ML EACHEYE SCH (09:16)
[2020-09-10] MEDS: MIDAZOLAM HCL 100 MG in DEXT 5% WATER 80 ML IV PRN (09:53)
== END 2020-09-10 11:57 | disposition expired | DRG 720 ==
LOC: EDBD 09:17 → ER 09:17 → MICUSO 10:16 → ENRESERV 10:23
PROVIDERS: ADMIT Internal Medicine; ATTEND Internal Medicine
PROC: 05HY33Z Insertion of Infusion Device into Upper Vein, Percutaneous Approach (ICD-10-PCS; 2020-08-08)
PROC: 5A09557 Assistance with Respiratory Ventilation, Greater than 96 Consecutive Hours, Continuous Positive Airway Pressure (ICD-10-PCS; 2020-08-11)
PROC: XW033E5 Introduction of Remdesivir Anti-infective into Peripheral Vein, Percutaneous Approach, New Technology Group 5 (ICD-10-PCS; 2020-08-11)
PROC: 30233M1 Transfusion of Nonautologous Plasma Cryoprecipitate into Peripheral Vein, Percutaneous Approach (ICD-10-PCS; 2020-08-13)
PROC: XW13325 Transfusion of Convalescent Plasma (Nonautologous) into Peripheral Vein, Percutaneous Approach, New Technology Group 5 (ICD-10-PCS; 2020-08-13)
PROC: 5A1955Z Respiratory Ventilation, Greater than 96 Consecutive Hours (ICD-10-PCS; principal; 2020-08-21)
PROC: 0BH17EZ Insertion of Endotracheal Airway into Trachea, Via Natural or Artificial Opening (ICD-10-PCS; 2020-08-21)
PROC: 02HV33Z Insertion of Infusion Device into Superior Vena Cava, Percutaneous Approach (ICD-10-PCS; 2020-08-23)
PROC: B548ZZA Ultrasonography of Superior Vena Cava, Guidance (ICD-10-PCS; 2020-08-23)
PROC: B518ZZA Fluoroscopy of Superior Vena Cava, Guidance (ICD-10-PCS; 2020-08-23)
PROC: 5A1D70Z Performance of Urinary Filtration, Intermittent, Less than 6 Hours Per Day (ICD-10-PCS; 2020-08-24)
PROC: 5A1D70Z Performance of Urinary Filtration, Intermittent, Less than 6 Hours Per Day (ICD-10-PCS; 2020-08-25)
PROC: 5A1D70Z Performance of Urinary Filtration, Intermittent, Less than 6 Hours Per Day (ICD-10-PCS; 2020-08-28)
PROC: 5A1D70Z Performance of Urinary Filtration, Intermittent, Less than 6 Hours Per Day (ICD-10-PCS; 2020-08-30)
PROC: 5A1D70Z Performance of Urinary Filtration, Intermittent, Less than 6 Hours Per Day (ICD-10-PCS; 2020-09-05)
PROC: 5A1D70Z Performance of Urinary Filtration, Intermittent, Less than 6 Hours Per Day (ICD-10-PCS; 2020-09-06)
PROC: 5A1D70Z Performance of Urinary Filtration, Intermittent, Less than 6 Hours Per Day (ICD-10-PCS; 2020-09-09)
DX: A41.89 Other specified sepsis (principal); U07.1 COVID-19; J12.89 Other viral pneumonia; I26.99 Other pulmonary embolism without acute cor pulmonale; E87.6 Hypokalemia; D68.59 Other primary thrombophilia; I21.4 Non-ST elevation (NSTEMI) myocardial infarction; I42.9 Cardiomyopathy, unspecified; R65.20 Severe sepsis without septic shock; D72.810 Lymphocytopenia; E87.4 Mixed disorder of acid-base balance; R74.01 Elevation of levels of liver transaminase levels; N17.9 Acute kidney failure, unspecified; E87.1 Hypo-osmolality and hyponatremia; E43 Unspecified severe protein-calorie malnutrition; D64.9 Anemia, unspecified; D69.6 Thrombocytopenia, unspecified; E87.5 Hyperkalemia; G93.1 Anoxic brain damage, not elsewhere classified; I48.0 Paroxysmal atrial fibrillation; N50.89 Other specified disorders of the male genital organs; R57.9 Shock, unspecified; Z51.5 Encounter for palliative care; Z66 Do not resuscitate; I11.0 Hypertensive heart disease with heart failure; I50.40 Unspecified combined systolic (congestive) and diastolic (congestive) heart failure; J96.21 Acute and chronic respiratory failure with hypoxia; J96.22 Acute and chronic respiratory failure with hypercapnia; Z86.19 Personal history of other infectious and parasitic diseases; I25.2 Old myocardial infarction; Z79.82 Long term (current) use of aspirin; Z68.34 Body mass index [BMI] 34.0-34.9, adult; Z86.711 Personal history of pulmonary embolism; Z99.11 Dependence on respirator [ventilator] status
CPT/HCPCS: 36415; 36556; 36600; 71045; 71275; 76700; 76937; 80048; 80053; 80202; 80305; 81003; 82375; 82550; 82553; 82728; 82805; 82962; 83036; 83605; 83615; 83735; 83880; 84100; 84145; 84443; 84478; 84484; 85025; 85379; 85384; 86140; 86850; 86900; 87070; 87635; 93005; 93970; 94640; 94660; 99291; C1725; C1752; C9113; J0282; J0330; J0456; J0692; J0696; J1160; J1644; J1650; J1815; J1940; J2250; J2270; J2370; J2704; J2930; J3010; J3370; J3480; J3490; J7030; J7040; J7042; J7050; J7060; J7131; J8540; P9017; P9047; Q9957; Q9967; A4315